=== PATIENT | female | born 1955 | race Caucasian/White ===

== ENCOUNTER → 2017-03-11 | Outpatient (CLI) | payer OTHER | LOC: FIMAGING 10:28 | PROVIDERS: ATTEND Physician Assistant | DX: Z12.31 Encounter for screening mammogram for malignant neoplasm of breast (principal) | CPT/HCPCS: G0202 ==

== ENCOUNTER → 2018-07-21 | Outpatient (CLI) | payer OTHER | LOC: FIMAGING 08:14 | PROVIDERS: ATTEND Physician Assistant | DX: Z12.31 Encounter for screening mammogram for malignant neoplasm of breast (principal) ==

== ENCOUNTER 2018-09-18 04:41 | Emergency (ER) | payer OTHER ==
[2018-09-18] MEDS ORDERED: HYDROmorphONE/DILAUDID 1 MG/ML INJ ONE (04:57)
[2018-09-18] MEDS ORDERED: ONDANSETRON 4 MG/2 ML VIAL ONE (04:57)
[2018-09-18] MEDS ORDERED: HYDROmorphONE/DILAUDID 1 MG/ML INJ IVP ONE (04:59)
[2018-09-18] MEDS ORDERED: ONDANSETRON 4 MG/2 ML VIAL IVP ONE ×2 (04:59→05:38)
[2018-09-18] MEDS ORDERED: NS 1,000 ML IV ONE (04:59)
--- NOTE | 2018-09-18 05:03 | EDPHY ---
H & P Stated Complaint: RLQ abd pain, vomiting x2 hours, last meal 1700 09/17 Time Seen by Provider: 09/18/18 04:53 HPI/ROS: Chief Complaint: Abdominal pain, nausea vomiting HPI: 63-year-old woman with a history of hypertension had a sudden onset of severe right lower quadrant abdominal pain approximately 1 hr prior to presentation. She has not have a history of similar pain in the past. She has vomited. No diarrhea or constipation. No history of abdominal surgeries in the past. No urinary urgency or frequency. It hurts to move around. Pain is a 10/10. There are no alleviating factors. ROS: 10 systems were reviewed and were negative except those elements noted in the HPI. PMH: Hypertension Social History: No smoking, no alcohol, no recreational drug use Family History: non-contributory Physical Exam: Gen: Awake, Alert, No Distress HEENT: Nose: no rhinorrhea Eyes: PERRLA, EOMI Mouth: Moist mucosa Neck: Supple, no JVD Chest: nontender, lungs clear to auscultation Heart: S1, S2 normal, no murmur Abd: Soft, she has focal tenderness in the right lower quadrant with guarding Back: no CVA tenderness, no midline tenderness Ext: no edema, non-tender Skin: no rash Neuro: CN II-XII intact, Sensation grossly intact, Strength 5/5 in bilateral upper and lower extremities - Personal History Current Tetanus Diphtheria and Acellular Pertussis (TDAP): Yes - Medical/Surgical History Hx Asthma: No Hx Chronic Respiratory Disease: No Hx Diabetes: No Hx Cardiac Disease: No Hx Renal Disease: No Hx Cirrhosis: No Hx Alcoholism: No Hx HIV/AIDS: No Hx Splenectomy or Spleen Trauma: No Other PMH: HTN, - Social History Smoking Status: Never smoked Constitutional: Initial Vital Signs Temperature (C) 36.3 C 09/18/18 04:45 Heart Rate 63 09/18/18 04:45 Respiratory Rate 18 09/18/18 04:45 Blood Pressure 170/106 H 09/18/18 04:45 O2 Sat (%) 95 09/18/18 04:45 O2 Delivery Mode Room Air Allergies/Adverse Reactions: penicillin G Allergy (Verified 09/18/18 04:44) Home Medications: Medication Instructions Recorded Albuterol [Proventil Inhaler HFA 1 - 2 puffs IH Q4 PRN #1 mdi 12/26/13 (*)] Estradiol [Estraderm 0.1 MG (RX)] 0.1 mg TD SUWE 12/26/13 Ibuprofen [Advil Liqui-Gels] 200 - 400 mg PO DAILY PRN 12/26/13 Irbesartan 75 mg PO DAILY@18 12/26/13 Progesterone, Micronized 100 mg PO DAILY@18 12/26/13 [Progesterone] levOFLOXACIN [levAQUIN] 750 mg PO DAILY #4 tab 12/26/13 Hydrocodone/Acetaminophen 1 - 2 each PO Q4-6PRN PRN #10 09/18/18 [Hydrocodon-Acetaminophen 5-325] tablet Tamsulosin HCl 0.4 mg PO DAILY #10 cap 09/18/18 Medical Decision Making - Diagnostics Imaging Results: CT scan shows a 3 mm right UVJ stone with mild hydronephrosis. Study interpreted by Dr. Rodas. Imaging: Discussed imaging studies w/ card cutter helper Radiologist ED Course/Re-evaluation: Patient has a 3 mm right UVJ stone. Pain is controlled after Toradol and Dilaudid. Vomiting is improved. Plan will be to discharge on tamsulosin, follow up with primary care physician, collect the stone. - Data Points Laboratory Results: Laboratory Results 09/18/18 05:00 09/18/18 05:00 09/18/18 09/18/18 09/18/18 05:25 05:05 05:00 WBC 9.08 10^3/uL 10^3/uL (3.80-9.50) RBC 4.63 10^6/uL 10^6/uL (4.18-5.33) Hgb 13.6 g/dL g/dL (12.6-16.3) POC Hgb 13.9 gm/dL gm/dL (12.6-16.3) Hct 41.7 % % (38.0-47.0) POC Hct 41 % % (38-47) MCV 90.1 fL fL (81.5-99.8) MCH 29.4 pg pg (27.9-34.1) MCHC 32.6 g/dL g/dL (32.4-36.7) RDW 12.9 % % (11.5-15.2) Plt Count 220 10^3/uL 10^3/uL (150-400) MPV 10.1 fL fL (8.7-11.7) Neut % (Auto) 84.0 % H % (39.3-74.2) Lymph % (Auto) 10.1 % L % (15.0-45.0) Humphreys % (Auto) 4.5 % % (4.5-13.0) Eos % (Auto) 0.8 % % (0.6-7.6) Baso % (Auto) 0.4 % % (0.3-1.7) Nucleat RBC Rel Count 0.0 % % (0.0-0.2) Absolute Neuts (auto) 7.62 10^3/uL H 10^3/uL (1.70-6.50) Absolute Lymphs (auto) 0.92 10^3/uL L 10^3/uL (1.00-3.00) Absolute Monos (auto) 0.41 10^3/uL 10^3/uL (0.30-0.80) Absolute Eos (auto) 0.07 10^3/uL 10^3/uL (0.03-0.40) Absolute Basos (auto) 0.04 10^3/uL 10^3/uL (0.02-0.10) Absolute Nucleated RBC 0.00 10^3/uL 10^3/uL (0-0.01) Immature Gran % 0.2 % % (0.0-1.1) Immature Gran # 0.02 10^3/uL 10^3/uL (0.00-0.10) POC Sodium 146 mEq/L H mEq/L (135-145) Sodium POC Potassium 3.6 mEq/L mEq/L (3.3-5.0) Potassium POC Chloride 108 mEq/L mEq/L (97-110) Chloride Carbon Dioxide Anion Gap POC BUN 22 mg/dL mg/dL (7-23) BUN Creatinine POC Creatinine 0.7 mg/dL mg/dL (0.6-1.0) Estimated GFR Glucose POC Glucose 111 mg/dL H mg/dL (70-100) Calcium Total Bilirubin AST ALT Alkaline Phosphatase Total Protein Albumin Lipase Urine Color YELLOW Urine Appearance HAZY Urine pH 5.0 (5.0-7.5) Ur Specific Mccarley > 1.035 H (1.002-1.030) Urine Protein NEGATIVE (NEGATIVE) Urine Ketones NEGATIVE (NEGATIVE) Urine Blood 1+ H (NEGATIVE) Urine Nitrate NEGATIVE (NEGATIVE) Urine Bilirubin NEGATIVE (NEGATIVE) Urine Urobilinogen NEGATIVE EU EU (0.2-1.0) Ur Leukocyte Esterase NEGATIVE (NEGATIVE) Urine RBC 3-5 /hpf H /hpf (0-3) Urine WBC 1-3 /hpf /hpf (0-3) Ur Epithelial Cells TRACE /lpf /lpf (NONE-1+) Urine Mucus 1+ /lpf /lpf (NONE-1+) Urine Glucose NEGATIVE (NEGATIVE) 09/18/18 05:00 WBC RBC Hgb POC Hgb Hct POC Hct MCV MCH MCHC RDW Plt Count MPV Neut % (Auto) Lymph % (Auto) Humphreys % (Auto) Eos % (Auto) Baso % (Auto) Nucleat RBC Rel Count Absolute Neuts (auto) Absolute Lymphs (auto) Absolute Monos (auto) Absolute Eos (auto) Absolute Basos (auto) Absolute Nucleated RBC Immature Gran % Immature Gran # POC Sodium Sodium 142 mEq/L mEq/L (135-145) POC Potassium Potassium 3.8 mEq/L mEq/L (3.5-5.2) POC Chloride Chloride 110 mEq/L mEq/L (97-110) Carbon Dioxide 24 mEq/l mEq/l (22-31) Anion Gap 8 mEq/L mEq/L (6-14) POC BUN BUN 24 mg/dL H mg/dL (7-23) Creatinine 0.7 mg/dL mg/dL (0.6-1.0) POC Creatinine Estimated GFR > 60 Glucose 113 mg/dL H mg/dL (70-100) POC Glucose Calcium 9.1 mg/dL mg/dL (8.5-10.4) Total Bilirubin 0.5 mg/dL mg/dL (0.1-1.4) AST 20 IU/L IU/L (14-46) ALT 10 IU/L IU/L (9-52) Alkaline Phosphatase 59 IU/L IU/L (38-126) Total Protein 6.9 g/dL g/dL (6.3-8.2) Albumin 4.1 g/dL g/dL (3.5-5.0) Lipase 109 IU/L IU/L (23-300) Urine Color Urine Appearance Urine pH Ur Specific Mccarley Urine Protein Urine Ketones Urine Blood Urine Nitrate Urine Bilirubin Urine Urobilinogen Ur Leukocyte Esterase Urine RBC Urine WBC Ur Epithelial Cells Urine Mucus Urine Glucose Medications Given: Discontinued Medications Hydromorphone HCl (Dilaudid) 0.5 mg IVP EDNOW ONE Stop: 09/18/18 05:00 Last Admin: 09/18/18 05:06 Dose: 0.5 mg Hydromorphone HCl (Dilaudid) 0.5 mg IVP EDNOW ONE Stop: 09/18/18 05:39 Last Admin: 09/18/18 05:41 Dose: 0.5 mg Sodium Chloride (Ns) 1,000 mls @ 0 mls/hr IV ONCE ONE; Wide Open PRN Reason: Protocol Stop: 09/18/18 05:00 Last Admin: 09/18/18 05:06 Dose: 1,000 mls Ketorolac Tromethamine (Toradol) 15 mg IVP EDNOW ONE Stop: 09/18/18 05:39 Last Admin: 09/18/18 05:40 Dose: 15 mg Ondansetron HCl (Zofran) 4 mg IVP EDNOW ONE Stop: 09/18/18 05:00 Last Admin: 09/18/18 05:06 Dose: 4 mg Ondansetron HCl (Zofran) 4 mg IVP EDNOW ONE Stop: 09/18/18 05:39 Last Admin: 09/18/18 05:40 Dose: 4 mg Point of Care Test Results: Chemistry 09/18/18 05:05 POC Sodium 146 mEq/L H mEq/L (135-145) POC Potassium 3.6 mEq/L mEq/L (3.3-5.0) POC Chloride 108 mEq/L mEq/L (97-110) POC BUN 22 mg/dL mg/dL (7-23) POC Creatinine 0.7 mg/dL mg/dL (0.6-1.0) POC Glucose 111 mg/dL H mg/dL (70-100) ISTAT H&H 09/18/18 05:05 POC Hgb 13.9 gm/dL gm/dL (12.6-16.3) POC Hct 41 % % (38-47) Departure - Departure Disposition: Home, Routine, Self-Care Clinical Impression: Kidney stone Condition: Good Instructions: Kidney Stones (ED) Additional Instructions: Take ibuprofen, 600 mg every 8 hr. You may alternate with acetaminophen, 1000 mg every 8 hr. Take tamsulosin daily until you passed stone. Strain your urine and collect the stone and take it to your primary care physician for analysis. Follow up with primary care physician in 3-5 days for further evaluation. Return to the emergency depart for worsening uncontrolled pain, uncontrolled nausea vomiting, fevers, chills, or any other concerns. Referrals: Jeanna Norman PA [Primary Care Provider] - As per Instructions Prescriptions: Hydrocodone/Acetaminophen [Hydrocodon-Acetaminophen 5-325] 1 - 2 each PO Q4- 6PRN PRN #10 tablet PRN Reason: Pain, Severe Tamsulosin HCl 0.4 mg PO DAILY #10 cap
[2018-09-18] MEDS ORDERED: IOPAMIDOL (ISOVUE-300) 100 ML BTL ONE (05:07)
[2018-09-18 05:11] LABS: PLATELET COUNT 220 10^3/uL (150-400)
[2018-09-18] MEDS ORDERED: KETOROLAC 15 MG/1 ML SDV ONE (05:34)
[2018-09-18] MEDS ORDERED: HYDROmorphONE/DILAUDID 2 MG/ML INJ IVP ONE (05:38)
[2018-09-18] MEDS ORDERED: KETOROLAC 15 MG/1 ML SDV IVP ONE (05:38)
[2018-09-18] MEDS ORDERED: TAMSULOSIN HCL 0.4 MG CAP PO ONE (05:51)
[2018-09-18 06:37] VITALS: BP 158/76
== END 2018-09-18 06:37 | disposition home or self-care (01) ==
DX: N20.0 Calculus of kidney (principal)
CPT/HCPCS: 82435-PO; 82565-PO; 82947-PO; 84132-PO; 84295-PO; 84520-PO; 85014-PO; 96374; J1170; J1885; J2405; Q9967

== ENCOUNTER 2018-12-28 16:21 | Inpatient (IN) | payer OTHER ==
[2018-12-28] MEDS ORDERED: NS 1,000 ML IV ONE ×3 (16:50→21:51)
[2018-12-28 17:04] LABS: PLATELET COUNT 199 10^3/uL (150-400)
[2018-12-28 17:09] LABS: INR 1.16 (0.83-1.16); PROTIME(PATIENT) 14.3 SEC (12.0-15.0)
--- NOTE | 2018-12-28 17:13 | EDPHY ---
H & P Time Seen by Provider: 12/28/18 16:44 HPI/ROS: HPI Confused. Diaphoretic. 63-year-old female by private vehicle with her son. The son reports that she came home from work early yesterday. She was complaining of nausea. She vomited x1. She went to bed early. The son reports that she was up out of bed at about 8:30 a.m. This morning. She seemed a little slow to respond to questioning but was taking care of the dogs. She then went back to bed. He then got back home after work and checked on her about 45 min prior to arrival. She was very confused at that time. She was not able to answer questions clearly and she was diaphoretic. I cannot get any further history from the patient. She has no history of alcohol abuse. No history of IV drug street drug use. There is no history of head trauma. She tells me only that she has not been feeling well. ROS: Constitutional: No fever, no chills. As above. Eyes: No discharge. No changes in vision. ENT: No sore throat. No nasal congestion or rhinorrhea. Respiratory: No cough. No shortness of breath. Cardiac: No chest pain, no palpitations. Gastrointestinal: No abdominal pain, no vomiting, no diarrhea. Genitourinary: No hematuria. No dysuria or increased frequency with urination. Musculoskeletal: No back pain. No neck pain. No myalgias or arthralgias. Skin: No rashes. Neurological: No headache. No focal weakness or altered sensation. Past medical history: Hypertension. Social history: She is . She lives with her and her son. Nonsmoker. No alcohol. No history of narcotic pain medication use. Physical Exam: General Appearance: Awake but sleepy. She is not in distress. She is mildly diaphoretic. Patient is clearly confused. She is slow to respond to questioning and has tangential thoughts. This patient appears well-hydrated and well-nourished. Eyes: Pupils equal and round, small at 2-1 mm bilaterally, no pallor or injection. No lid edema, erythema or injection. ENT, Mouth: Mucous membranes are dry. The pharyngeal tissues are unremarkable. No edema or swelling. No asymmetry suggestive of abscess. No erythema or exudates. No tongue lacerations or abrasions. Respiratory: There are no retractions, lungs are clear to auscultation anteriorly with good air movement bilaterally. Cardiovascular: Regular rate and rhythm. Tachycardia. No murmur appreciated. Gastrointestinal: Abdomen is soft and nontender, no masses, bowel sounds normal. No focal tenderness at McBurney's point. No Torres sign. Neurological: Motor sensory function is grossly intact. Cranial nerves are normal. Cerebellar function grossly normal. Skin: Warm and dry, no rashes. Musculoskeletal: Neck is supple and nontender. No pain on flexion of her neck. Extremities are symmetrical. All joints range without pain or impingement. Psychiatric: No agitation. No depression. Database: EKG: EKG time is 4:35 p.m.: EKG shows a narrow complex sinus tachycardia with ventricular rate of 114. ST depressions are noted in the inferior leads 2, 3, AVF there is also subtle ST depression noted in the lateral precordial leads V4 , V5 and V6. Borderline left ventricular hypertrophy. Interpreted by me. EKG time 5:54 p.m.: EKG shows a narrow complex sinus rhythm with ventricular rate of 89. T-wave inversions noted in the inferior leads borderline T-wave abnormalities in the lateral precordial leads. Interpreted by me. Imaging: Chest x-ray AP portable: No infiltrate. No pneumothorax. Cardiac mediastinal silhouette is unremarkable. No acute cardiopulmonary disease process noted. Interpreted by me. CT head without contrast: Dental caries. Otherwise negative study. Results were discussed with staff radiologist Dr. Alec Koenig. Procedures: Procedure: Lumbar puncture. Indication: Altered mental status After verbal informed consent from patient explaining the risks including infection, bleeding, and neurologic damage, a lumbar puncture was performed after the patient was prepped and draped in the usual fashion. The back was anesthetized with 1% lidocaine. Approximately 4 cc of clear fluid was obtained. Opening pressure was not obtained. There were no complications. The procedure was performed by myself. Emergency department course: IV placed. She was placed on a monitoring and evaluation advisor. Triage vital signs reviewed, she is mildly hypertensive she is tachycardic in the 120s. Temperature is 36.5. She was started on IV normal saline with 1-2 L to be given over the next 1-2 hours. Initial point of care testing indicated a hematocrit of 61. 5:35 p.m., the patient was re-evaluated, tachycardia has resolved with IV fluids. Temperature 36.4 degrees. Heart rate currently 83 with a normal sinus rhythm, narrow complex on the monitor. Blood pressure 108/78. Pulse oximetry 90% on room air. She is now responding to questions appropriately. She is much more lucid. She states that she is feeling better. She is answering questions appropriately. She denies any headache or neck pain. Urinalysis indicates white cells in her urine. Culture has been ordered. Blood cultures obtained. Lactate 3.3. Severe sepsis order set initiated. The patient will be given IV Rocephin for presumed urinary tract infection with urosepsis. I feeling as her lactate will significantly clear with IV fluids and her hemoconcentration will improve. Blood cultures and urine cultures are pending. 6:15 p.m., patient re-evaluated, vital signs are normal. Patient is afebrile. She is mentating well. Repeat neurologic Assessment is nonfocal. Discussed results of workup and need for admission. She is receiving IV Rocephin for treatment of urinary tract infection at this time. Hospitalist paged. 6:30 p.m., spoke with Dr. Shirin Lange, on-call hospitalist, case discussed in detail with her. She accepts this patient for admission to the hospitalist service for further evaluation and management. 7:15 p.m., the patient was re-evaluated, she is again altered and confused. Marked difference from previous evaluation at 6:15 p.m.. She is now complaining of a headache as well. Lumbar puncture to be performed. Admitting hospitalist notified. 8:00 p.m., discussed patient's care with admitting hospitalist Dr. Shirin Lange. Waiting on complete results of CSF. Fluid was clear. A few red cells but no white cells. Infection unlikely. Glucose and protein pending. Remaining CSF results to be followed up by hospitalist service. The patient will now be admitted to the step-down unit. The patient's remaining emergency department course under my care has been uneventful. The patient was admitted in stable condition to the hospitalist service. Differential Diagnosis: The differential diagnosis on this patient includes but is not limited to pneumonia, CVA, urinary tract infection, gastroenteritis, dehydration, meningitis, encephalitis, influenza. Subarachnoid hemorrhage, traumatic brain injury unlikely. This represents a partial list of diagnoses considered. These considerations are based on history, physical exam, past history, reassessment and diagnostic testing. Smoking Status: Never smoked Constitutional: Initial Vital Signs Heart Rate 124 H 12/28/18 16:26 Respiratory Rate 18 12/28/18 16:26 Blood Pressure 149/89 H 12/28/18 16:26 O2 Sat (%) 90 L 12/28/18 16:26 O2 Delivery Mode Nasal Cannula O2 (L/minute) 2 Allergies/Adverse Reactions: penicillin G Allergy (Verified 12/28/18 18:52) Unknown Home Medications: Medication Instructions Recorded Herbals/Supplements -Info Only 1 ea PO DAILY 12/28/18 Ibuprofen [Motrin (*)] 200 - 400 mg PO DAILY PRN 12/28/18 Irbesartan [Avapro 150 mg (*)] 150 mg PO DAILY 12/28/18 oxyCODONE/APAP 5/325 [Percocet 1 tab PO Q6HRS PRN 12/28/18 5/325 (*)] Medical Decision Making Critical Care Time: I spent a total of 52 minutes of critical care time in obtaining history, performing a physical exam, bedside monitoring of interventions, collecting and interpreting tests and discussion with consultants but not including time spent performing procedures. - Data Points Laboratory Results: Laboratory Results 12/28/18 16:45 12/28/18 16:45 Microbiology Results: MICROBIOLOGY 12/28/18 17:15 Urine,Clean Catch Urine Culture - Preliminary Medications Given: Chlorhexidine Gluconate (Peridex) 15 ml PO Q12@08,20 [facility] Stop: 06/27/19 07:59 Last Admin: 12/29/18 20:48 Dose: 15 ml Enoxaparin Sodium (Lovenox) 30 mg SC DAILY B[facility] Stop: 06/27/19 08:59 Last Admin: 12/29/18 09:30 Dose: 30 mg Hydrocortisone (Solucortef) 50 mg IVP Q8HRS [facility] Stop: 06/27/19 13:59 Last Admin: 12/30/18 06:30 Dose: 50 mg Sodium Chloride (Ns) 1,000 mls @ 30 mls/hr IV CONT [facility] Stop: 06/26/19 19:44 Last Admin: 12/28/18 22:51 Dose: 1,000 mls Vasopressin 25 unit/ Sodium (Chloride) 251.25 mls @ 24 mls/hr IV CONT B[facility]AR Stop: 06/27/19 07:59 Last Admin: 12/30/18 06:29 Dose: 251.25 mls Famotidine/Sodium Chloride (Pepcid 20 Mg (Premix)) 50 mls @ 200 mls/hr IV DAILY [facility] Stop: 06/27/19 08:59 Last Admin: 12/29/18 09:32 Dose: 50 mls Acyclovir 720 mg/ Dextrose 264.4 mls @ 250 mls/hr IV Q12H [facility] Stop: 01/28/19 19:59 Last Admin: 12/30/18 07:42 Dose: 264.4 mls Ceftriaxone Sodium 2 gm/ (Sodium Chloride) 50 mls @ 100 mls/hr IV Q12H [facility]AR PRN Reason: Protocol Stop: 01/28/19 10:59 Last Admin: 12/29/18 23:50 Dose: 50 mls Sodium Bicarbonate 150 meq/ (Dextrose) 1,150 mls @ 200 mls/hr IV CONT [facility]AR Stop: 06/27/19 11:29 Last Admin: 12/30/18 01:03 Dose: 1,150 mls Epinephrine HCl 2 mg/ Sodium (Chloride) 502 mls @ 0 mls/hr IV CONT BANDAR; Per Protocol PRN Reason: Protocol Stop: 06/27/19 08:29 Last Admin: 12/30/18 05:19 Dose: 502 mls Vancomycin/Sodium Chloride (Vancomycin 1 Gm (Premix)) 250 mls @ 250 mls/hr IV Q24H [facility] Stop: 01/29/19 03:59 Last Admin: 12/30/18 04:29 Dose: 250 mls Oseltamivir Phosphate (Tamiflu Oral Suspension) 30 mg TUBE DAILY [facility] Stop: 01/02/19 09:01 Last Admin: 12/29/18 14:55 Dose: 30 mg Discontinued Medications Etomidate (Etomidate) 20 mg IV ONCE ONE Stop: 12/29/18 05:31 Last Admin: 12/29/18 04:52 Dose: 20 mg Fentanyl (Sublimaze) 25 mcg IVP EDNOW ONE Stop: 12/28/18 19:27 Last Admin: 12/28/18 19:27 Dose: 25 mcg Fentanyl (Sublimaze) 25 mcg IVP EDNOW ONE Stop: 12/28/18 19:44 Last Admin: 12/28/18 19:59 Dose: 25 mcg Fentanyl (Sublimaze) 25 mcg IVP EDNOW ONE Stop: 12/28/18 19:53 Last Admin: 12/28/18 19:55 Dose: 25 mcg Hydrocortisone (Solucortef) 50 mg IVP ONCE ONE Stop: 12/29/18 07:50 Last Admin: 12/29/18 08:50 Dose: 50 mg Sodium Chloride (Ns) 1,000 mls @ 0 mls/hr IV ONCE ONE; Wide Open PRN Reason: Protocol Stop: 12/28/18 16:51 Last Admin: 12/28/18 17:01 Dose: 1,000 mls Sodium Chloride (Ns) 1,000 mls @ 0 mls/hr IV EDNOW ONE; Wide Open PRN Reason: Protocol Stop: 12/28/18 17:00 Last Admin: 12/28/18 17:03 Dose: 1,000 mls Ceftriaxone Sodium/Dextrose (Rocephin 1 Gm (Premix)) 50 mls @ 100 mls/hr IV EDNOW ONE PRN Reason: Protocol Stop: 12/28/18 18:07 Last Admin: 12/28/18 18:09 Dose: 50 mls Lactated Ringer's (Lr) 1,800 mls @ 3,600 mls/hr 30 ml/kg infuse over 30 min ( 1800 ml) IV EDNOW ONE PRN Reason: Protocol Stop: 12/28/18 18:07 Last Admin: 12/28/18 18:07 Dose: 1,800 mls Acyclovir 720 mg/ Dextrose 264.4 mls @ 250 mls/hr IV Q8HRS [facility] Stop: 01/27/19 21:59 Last Admin: 12/29/18 07:23 Dose: 264.4 mls Sodium Chloride (Ns) 1,000 mls @ 3,000 mls/hr IV ONCE ONE Stop: 12/28/18 22:10 Last Admin: 12/28/18 21:20 Dose: 1,000 mls Sodium Chloride (Ns) 1,000 mls @ 0 mls/hr IV ONCE ONE PRN Reason: Wide Open Stop: 12/29/18 03:17 Last Admin: 12/29/18 05:30 Dose: 1,000 mls Piperacillin/Tazobactam/Dextrose (Zosyn 3.375 Gm (Premix)) 50 mls @ 100 mls/hr IV Q6H [facility] PRN Reason: Protocol Stop: 01/28/19 03:29 Last Admin: 12/29/18 09:30 Dose: 50 mls Norepinephrine 4 mg/ Sodium (Chloride) 504 mls @ 0 mls/hr IV CONT BANDAR; Per Protocol PRN Reason: Protocol Stop: 06/27/19 03:29 Last Admin: 12/29/18 18:54 Dose: 504 mls Vancomycin/Sodium Chloride (Vancomycin 1 Gm (Premix)) 250 mls @ 250 mls/hr IV Q24H [facility] Stop: 01/28/19 03:59 Last Admin: 12/29/18 04:38 Dose: 250 mls Epinephrine HCl 1 mg/ Sodium (Chloride) 251 mls @ 0 mls/hr IV CONT BANDAR; Per Protocol PRN Reason: Protocol Stop: 06/27/19 08:29 Last Admin: 12/29/18 17:22 Dose: 251 mls Sodium Chloride (Ns) 500 mls @ 0 mls/hr IV ONCE ONE PRN Reason: As Directed Stop: 12/29/18 13:01 Last Admin: 12/29/18 11:00 Dose: 500 mls Norepinephrine 8 mg/ Sodium (Chloride) 1,008 mls @ 0 mls/hr IV CONT BANDAR; Per Protocol PRN Reason: Protocol Stop: 06/27/19 03:29 Last Admin: 12/30/18 06:29 Dose: 1,008 mls Potassium Chloride (Potassium Cl 20 Meq (Premix)) 50 mls @ 50 mls/hr IV Q1H [facility] Stop: 12/30/18 07:35 Last Admin: 12/30/18 05:32 Dose: 50 mls Oseltamivir Phosphate (Tamiflu Oral Suspension) 30 mg PO DAILY@0800 [facility] Stop: 01/02/19 08:01 Last Admin: 12/30/18 02:47 Dose: Not Given Rocuronium [place] (Zemuron) 80 mg IV ONCE ONE Stop: 12/29/18 05:31 Last Admin: 12/29/18 04:53 Dose: 80 mg Sodium Bicarbonate (Sodium Bicarbonate) 50 meq IV ONCE ONE Stop: 12/29/18 10:01 Last Admin: 12/29/18 10:00 Dose: 50 meq Point of Care Test Results: Chemistry 12/28/18 12/28/18 16:48 16:46 POC Sodium 142 mEq/L mEq/L (135-145) POC Potassium 3.9 mEq/L mEq/L (3.3-5.0) POC Chloride 108 mEq/L mEq/L (97-110) POC Total CO2 16 mEq/L L mEq/L (22-31) POC BUN 39 mg/dL H mg/dL (7-23) POC Creatinine 2.2 mg/dL H mg/dL (0.6-1.0) POC Glucose 172 mg/dL H mg/dL (70-100) POC Troponin I 0.00 ng/mL ng/mL (0.00-0.08) ISTAT H&H 12/28/18 16:48 POC Hgb 20.7 gm/dL H* gm/dL (12.6-16.3) POC Hct 61 % H* % (38-47) Departure - Departure Disposition: [facility] Acute Clinical Impression: Altered mental status, Urinary tract infection, Polycythemia, Dehydration, Renal insufficiency, Influenza with encephalopathy
[2018-12-28] MEDS ORDERED: LR IV ONE (17:38)
[2018-12-28] MEDS ORDERED: fentaNYL 100 MCG/2 ML INJ ONE (19:09)
[2018-12-28 19:11] LABS: PLATELET COUNT 149 10^3/uL (150-400)
[2018-12-28] MEDS ORDERED: fentaNYL 100 MCG/2 ML INJ IVP ONE ×3 (19:26→19:52)
[2018-12-28] MEDS ORDERED: PROMETHAZINE HCL 25 MG/ML INJ IVP PRN (19:33)
[2018-12-28] MEDS ORDERED: ONDANSETRON 4 MG/2 ML VIAL IVP PRN (19:33)
[2018-12-28] MEDS ORDERED: HYDROmorphONE/DILAUDID 1 MG/ML INJ IVP PRN (19:33)
[2018-12-28] MEDS ORDERED: LORazepam 2 MG/ML INJ IVP PRN (19:33)
[2018-12-28] MEDS ORDERED: ACETAMINOPHEN 325 MG TAB PO PRN (19:33)
[2018-12-28] MEDS ORDERED: ONDANSETRON DISINTEGRATING 4 MG TAB PO PRN (19:33)
[2018-12-28] MEDS ORDERED: KETAMINE 200 MG/20 ML VIAL ONE (19:44)
[2018-12-28] MEDS ORDERED: NS 1,000 ML IV SCH (19:45)
--- NOTE | 2018-12-28 21:15 | PDGENHP ---
History and Physical - Chief Complaint confusion - History of Present Illness 63 yo F with minimal PMH other than HTN and recent diagnosis of kidney stone presenting from home with her son with acute confusion. Patient resides with her son who the majority of this history is obtained by as patient is unable to answer questions appropriately due to her encephalopathy. 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 This morning early before he left for work he noticed that she seemed a bit confused or slow and not her normal self. He went to work but when he got home this evening she was much more confused, she was still in bed which is very unusual for her and she had garbled speech, was diaphoretic and having a hard time walking without holding onto things. He brought her to the ER at that time, and she remains in very similar situation currently. He notes she has never had such a change in her mental status before. He notes that she was given pain medications for her kidney stone but has not been requiring them and he doubts she took them by accident. Patient herself is able to say that she hurts, but has a hard time saying where, did state that her neck hurt at one time. She otherwise really cannot answer questions intelligibly, and although she is awake and alert she is tangential and her answers are garbled and nonsensical. History Information - Allergies/Home Medication List Allergies/Adverse Reactions: penicillin G Allergy (Verified 12/28/18 18:52) Unknown Home Medications: Herbals/Supplements -Info Only 1 ea PO DAILY 12/28/18 [Last Taken Unknown] Ibuprofen [Motrin (*)] 200 - 400 mg PO DAILY PRN 12/28/18 [Last Taken Unknown] Irbesartan [Avapro 150 mg (*)] 150 mg PO DAILY 12/28/18 [Last Taken Unknown] oxyCODONE/APAP 5/325 [Percocet 5/325 (*)] 1 tab PO Q6HRS PRN 12/28/18 [Last Taken Unknown] I have personally reviewed and updated: family history, medical history, social history, surgical history - Past Medical History hypertension Additional medical history: recent diagnosis of kidney stone - Surgical History Additional surgical history: shoulder surgery - Family History Positive for: non-pertinent - Social History Smoking Status: Never smoked Alcohol Use: Sober Drug Use: None Additional social history: lives with her son and -- has alcoholic cirrhosis but has quit drinking as has the patient, 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 Review of Systems Review of Systems: unobtainable 2/2 mental status Physical Exam Physical Exam: Temp Pulse Resp BP Pulse Ox 36.5 C 109 H 14 91/68 L 92 12/28/18 17:40 12/28/18 20:04 12/28/18 20:04 12/28/18 20:04 12/28/18 20:04 O2 (L/minute) 3 Constitutional: chronically ill appearing, uncomfortable Eyes: PERRL, anicteric sclera Ears, Nose, Mouth, Throat: poor dentition, dry mucous membranes Cardiovascular: no murmur, rub, or gallop, tachycardia, No edema Respiratory: no respiratory distress, no rales or rhonchi Gastrointestinal: normoactive bowel sounds, soft, non-tender abdomen Genitourinary: no bladder tenderness Skin: warm, normal color Musculoskeletal: generalized weakness Neurologic: weakness (BUE weak but limited by ability to cooperate), CN II-XII Intact, No AAOx3 Psychiatric: encephalopathic, other (rambling incoherently) Lab Data & Imaging Review 12/28/18 18:53 12/28/18 16:45 WBC 14.04 10^3/uL (3.80-9.50) H 12/28/18 18:53 RBC 5.93 10^6/uL (4.18-5.33) H 12/28/18 18:53 Hgb 17.1 g/dL (12.6-16.3) H 12/28/18 18:53 POC Hgb 20.7 gm/dL (12.6-16.3) H* 12/28/18 16:48 Hct 51.2 % (38.0-47.0) H 12/28/18 18:53 POC Hct 61 % (38-47) H* 12/28/18 16:48 MCV 86.3 fL (81.5-99.8) 12/28/18 18:53 MCH 28.8 pg (27.9-34.1) 12/28/18 18:53 MCHC 33.4 g/dL (32.4-36.7) 12/28/18 18:53 RDW 13.8 % (11.5-15.2) 12/28/18 18:53 Plt Count 149 10^3/uL (150-400) L 12/28/18 18:53 MPV 11.2 fL (8.7-11.7) 12/28/18 18:53 Neut % (Auto) 85.9 % (39.3-74.2) H 12/28/18 18:53 Lymph % (Auto) 4.1 % (15.0-45.0) L 12/28/18 18:53 [place] % (Auto) 8.8 % (4.5-13.0) 12/28/18 18:53 Eos % (Auto) 0.1 % (0.6-7.6) L 12/28/18 18:53 Baso % (Auto) 0.3 % (0.3-1.7) 12/28/18 18:53 Nucleat RBC Rel Count 0.0 % (0.0-0.2) 12/28/18 18:53 Absolute Neuts (auto) 12.06 10^3/uL (1.70-6.50) H 12/28/18 18:53 Absolute Lymphs (auto) 0.58 10^3/uL (1.00-3.00) L 12/28/18 18:53 Absolute Monos (auto) 1.24 10^3/uL (0.30-0.80) H 12/28/18 18:53 Absolute Eos (auto) 0.01 10^3/uL (0.03-0.40) L 12/28/18 18:53 Absolute Basos (auto) 0.04 10^3/uL (0.02-0.10) 12/28/18 18:53 Absolute Nucleated RBC 0.00 10^3/uL (0-0.01) 12/28/18 18:53 Immature Gran % 0.8 % (0.0-1.1) 12/28/18 18:53 Immature Gran # 0.11 10^3/uL (0.00-0.10) H 12/28/18 18:53 RBC/WBC/PLT Morphology TNP 12/28/18 18:53 Platelet Estimate TNP 12/28/18 18:53 PT 14.3 SEC (12.0-15.0) 12/28/18 16:45 INR 1.16 (0.83-1.16) 12/28/18 16:45 APTT 26.3 SEC (23.0-38.0) 12/28/18 16:45 VBG Lactic Acid 3.4 mmol/L (0.7-2.1) H 12/28/18 18:41 POC Sodium 142 mEq/L (135-145) 12/28/18 16:48 Sodium 135 mEq/L (135-145) 12/28/18 16:45 POC Potassium 3.9 mEq/L (3.3-5.0) 12/28/18 16:48 Potassium 4.5 mEq/L (3.5-5.2) 12/28/18 16:45 POC Chloride 108 mEq/L (97-110) 12/28/18 16:48 Chloride 107 mEq/L (97-110) 12/28/18 16:45 Carbon Dioxide 14 mEq/l (22-31) L 12/28/18 16:45 POC Total CO2 16 mEq/L (22-31) L 12/28/18 16:48 Anion Gap 14 mEq/L (6-14) 12/28/18 16:45 POC BUN 39 mg/dL (7-23) H 12/28/18 16:48 BUN 36 mg/dL (7-23) H 12/28/18 16:45 Creatinine 2.1 mg/dL (0.6-1.0) H 12/28/18 16:45 POC Creatinine 2.2 mg/dL (0.6-1.0) H 12/28/18 16:48 Estimated GFR 24 12/28/18 16:45 Glucose 161 mg/dL (70-100) H 12/28/18 16:45 POC Glucose 172 mg/dL (70-100) H 12/28/18 16:48 Calcium 8.6 mg/dL (8.5-10.4) 12/28/18 16:45 Total Bilirubin 0.7 mg/dL (0.1-1.4) 12/28/18 16:45 Conjugated Bilirubin 0.6 mg/dL (0.0-0.5) H 12/28/18 16:45 Unconjugated Bilirubin 0.1 mg/dL (0.0-1.1) 12/28/18 16:45 AST 34 IU/L (14-46) 12/28/18 16:45 ALT 19 IU/L (9-52) 12/28/18 16:45 Alkaline Phosphatase 38 IU/L (38-126) 12/28/18 16:45 Ammonia < 9.0 uMOL/L (9.0-30.0) L 12/28/18 17:00 POC Troponin I 0.00 ng/mL (0.00-0.08) 12/28/18 16:46 Total Protein 6.7 g/dL (6.3-8.2) 12/28/18 16:45 Albumin 3.8 g/dL (3.5-5.0) 12/28/18 16:45 Lipase 79 IU/L (23-300) 12/28/18 16:45 TSH 5.330 uIU/mL (0.465-4.680) H 12/28/18 16:45 Free T4 1.02 ng/dL (0.59-2.19) 12/28/18 16:45 Free T3 1.89 pg/mL (2.77-5.27) L 12/28/18 16:45 Specimen Hemolysis 122 12/28/18 16:45 Urine Color HONEY 12/28/18 17:15 Urine Appearance MODERATELY TURBID 12/28/18 17:15 Urine pH 5.0 (5.0-7.5) 12/28/18 17:15 Ur Specific Iaeger 1.019 (1.002-1.030) 12/28/18 17:15 Urine Protein 1+ (NEGATIVE) H 12/28/18 17:15 Urine Ketones NEGATIVE (NEGATIVE) 12/28/18 17:15 Urine Blood 1+ (NEGATIVE) H 12/28/18 17:15 Urine Nitrate NEGATIVE (NEGATIVE) 12/28/18 17:15 Urine Bilirubin NEGATIVE (NEGATIVE) 12/28/18 17:15 Urine Urobilinogen 2.0 EU (0.2-1.0) H 12/28/18 17:15 Ur Leukocyte Esterase NEGATIVE (NEGATIVE) 12/28/18 17:15 Urine RBC 3-5 /hpf (0-3) H 12/28/18 17:15 Urine WBC 50-182 /hpf (0-3) H 12/28/18 17:15 Ur Epithelial Cells TRACE /lpf (NONE-1+) 12/28/18 17:15 Hyaline Casts 15-25 /lpf (0-1) H 12/28/18 17:15 Urine Mucus TRACE /lpf (NONE-1+) 12/28/18 17:15 Ur Culture Indicated? INDICATED (NI) H 12/28/18 17:15 Urine Glucose 1+ (NEGATIVE) H 12/28/18 17:15 CSF Tube Number 4 12/28/18 19:55 CSF Appearance CLEAR (CLEAR) 12/28/18 19:55 CSF Color COLORLESS (COLORLESS) 12/28/18 19:55 CSF Supernatant SL. XANTHO (COLORLESS) H 12/28/18 19:55 CSF WBC 3 /mm3 (0-5) 12/28/18 19:55 CSF RBC 13 /mm3 (0-0) H 12/28/18 19:55 Nasal Influenza A PCR FLU A DETECTED (NEGATIVE) H 12/28/18 20:05 Nasal Influenza B PCR NEGATIVE FOR FLU B (NEGATIVE) 12/28/18 20:05 Urine Opiates Screen NEGATIVE (NEGATIVE) 12/28/18 17:15 Urine Barbiturates NEGATIVE (NEGATIVE) 12/28/18 17:15 Ur Phencyclidine Scrn NEGATIVE (NEGATIVE) 12/28/18 17:15 Ur Amphetamine Screen NEGATIVE (NEGATIVE) 12/28/18 17:15 U Benzodiazepines Scrn NEGATIVE (NEGATIVE) 12/28/18 17:15 Urine Cocaine Screen NEGATIVE (NEGATIVE) 12/28/18 17:15 U Marijuana (THC) Screen NEGATIVE (NEGATIVE) 12/28/18 17:15 Ethyl Alcohol < 10 mg/dL (0-10) 12/28/18 16:45 Visualized and Interpreted Chest x-ray results: Yes Chest X-Ray results: no infiltrate Visualized and Interpreted imaging results: Yes Interpretation: head CT: nothing acute Visualized and Interpreted EKG results: Yes EKG Interpretation: Positive for: normal sinsus rhythm, ST depression, T waves inversion Assessment & Plan Assessment: Altered mental status (Acute) Urinary tract infection (Acute) Polycythemia (Acute) Dehydration (Acute) Renal insufficiency (Acute) 63 yo F with PMH of HTN presenting with acute encephalopathy, PEPITO, polycythemia found to have influenza A and concern for viral encephalitis # toxic metabolic encephalopathy: unclear etiology, differential including infectious process versus CVA versus medication related most likely given acuity of presentation. Head CT negative, LP performed and fluid clear with only small number RBC appreciated so far. Brain MRI w/wo pending, will ask neurology to evaluate in am. Utox negative. Does have flu A on swab and on discussion with ID, this could represent influenza encephalitis as well. # severe sepsis: with elevated wbc, low temp, tachycardia and source of infections noted to be influenza and ? encephalitis and UTI. HD stable, lactate beginning to trend down, monitoring in ICU # ? viral meningitis/encephalitis: as above, starting acyclovir pending HSV PCR , tamiflu and brain MRI pending # influenza A infection: as above, starting tamiflu # pyuria: unknown if symptomatic due to mental status, given ctx and cultures pending, will continue ctx for now # PEPITO: in the setting of illness as above and like poor PO intake, IVF overnight and trending, will bladder scan, does have a recent kidney stone diagnosis and if not improved in am will need eval for hydro # polycythemia: presumably related to volume depletion and some improvement s/p IVF, was not present in the recent past, trending, ABG pending # lactic acidosis: in setting of above, remains slightly elevated despite IVF and will continue fluids for now # hyperglycemia: likely stress response # IP status, critically ill requiring ICU level care, > 45 min critical care time spent in addition to usual admission time for evaluation of labs/imaging and coordination of care with other MDs, care plan reviewed with ER doctor including plan for LP, hx obtained from patients son present at bedside.
[2018-12-28 22:37] LABS: CREATINE KINASE 77 IU/L (0-156)
[2018-12-28] MEDS: ACYCLOVIR IV SCH (22:51)
[2018-12-28] MEDS: D5W IV SCH (22:51)
[2018-12-29] MEDS ORDERED: NS 1,000 ML IV ONE (03:16)
--- NOTE | 2018-12-29 03:32 | HOSPPROG ---
Hospitalist Progress Note Assessment/Plan: XC: Notified at 3 AM of new hypotension. I evaluated patient shortly after and BP 50s/30s, HR 120s. Her O2 sats remain normal on 3 L/min O2 but she is minimally responsive. She does open eyes to voice but little else. Review of records notable for suspected UTI, flu A+, and albuminocytologic dissociation on LP but no clear evidence of infection in CSF. I have ordered CXR, ABG, fluid bolus, and will broaden antibiotics to Vancomycin and Zosyn. She has been on acyclovir and CTX so far. I will also have norepinephrine started peripherally and ask the extruder operator horizontal surgeon to place a central line. If mental status does not improve with better BP she may require intubation to protect her airway as well. I personally spent 30 minutes critical care time evaluating patient and coordinating care. Objective: Vital Signs Temp Pulse Resp BP Pulse Ox 36.5 C 119 H 26 H 85/72 L 90 L 12/28/18 17:40 12/29/18 01:00 12/29/18 01:00 12/29/18 03:19 12/29/18 01:00 Microbiology 12/28/18 19:35 Gram Stain - Final Cerebral Spinal Fluid Laboratory Results 12/28/18 18:53 12/27/18 12/28/18 12/29/18 05:59 05:59 05:59 Intake Total 3050 Output Total 10 Balance 3040 PT 14.3 SEC (12.0-15.0) 12/28/18 16:45 INR 1.16 (0.83-1.16) 12/28/18 16:45 ICD10 Worksheet Patient Problems: Problems Problem Status Onset Shortness of breath Acute Altered mental status Acute Urinary tract infection Acute Polycythemia Acute Dehydration Acute Renal insufficiency Acute
[2018-12-29] MEDS ORDERED: VANCOMYCIN HCL/NORMAL SALINE 250 ML IV SCH (04:00)
[2018-12-29] MEDS: PIPERACILLIN/TAZO 3.375 GM/DEX 50 ML IV SCH ×2 (04:05→09:30)
--- NOTE | 2018-12-29 04:40 | GOP ---
[f rep st] OPERATIVE REPORT DATE OF OPERATION: SURGEON: Ignacio Dasilva MD PREOPERATIVE DIAGNOSIS: Sepsis. POSTOPERATIVE DIAGNOSIS: Sepsis. PROCEDURE PERFORMED: Right femoral central line placement. FINDINGS: INDICATIONS: The patient is hypotensive. Physician has requested assistance with central line place ment. DESCRIPTION OF PROCEDURE: Gown, gloves, sterile procedure. Time-out was done. Right groin scrubbed with ChloraPrep, draped in the usual sterile fashion. Using the ultrasound probe, the femoral vein was identified. An 18-gauge thin-wall needle was used to cannulate the vein. The guidewire inserted . The dilator was placed over this and eventually a triple-lumen catheter slid over the wire. All p orts were aspirated free of blood, flushed with heparinized saline and capped. The catheter was sewn in with silk and a sterile Tegaderm dressing placed. /[id number]/MODL
[2018-12-29] MEDS ORDERED: fentaNYL/NACL 100 ML IV SCH (05:00)
[2018-12-29] MEDS ORDERED: ETOMIDATE 40 MG/20 ML INJ ONE (05:00)
[2018-12-29] MEDS ORDERED: PROPOFOL/EMULSION 100 ML IV SCH (05:00)
[2018-12-29] MEDS ORDERED: ROCURONIUM 100 MG/10 ML VIAL ONE (05:00)
[2018-12-29 05:13] LABS: PLATELET COUNT 159 10^3/uL (150-400)
[2018-12-29] MEDS ORDERED: ROCURONIUM 100 MG/10 ML VIAL IV ONE (05:30)
[2018-12-29] MEDS ORDERED: ETOMIDATE 20 MG/10 ML VIAL IV ONE (05:30)
--- NOTE | 2018-12-29 05:41 | PDCONSULT ---
Partition Setter Note: I was requested to consult the patient in ICU for oral tracheal intubation by Dr. Dewitt. Patient is 63-year-old woman admitted for influenza whose had worsening respiratory status mental status. On arrival found the patient the bed in the intensive care unit. Patient was minimally responsive. Tachypneic and not protecting her airway. She coarse lung sounds bilaterally. ED procedure: RSI intubation Indication for the procedure was respiratory failure. The patient was preoxygenated with 100% oxygen by face mask. The patient was sedated with etomidate, 20 mg and paralyzed with rocuronium 80 mg. The patient was orally endotracheally intubated video laryngoscopy with a 7.5 ETT. Tracheal intubation was confirmed with misting on the tube; breath sounds were auscultated equally bilaterally; appropriate color change with [place] [employer] CO2 detector, capnography waveform is appropriate, oxygen saturation after procedure is 94%. Chest X-ray shows ETT in good position. The procedure was performed by myself.
--- NOTE | 2018-12-29 05:57 | PDMN ---
Medical Necessity Medical necessity: Pt meets inpt criteria per MD order and MCG M-160, Sepsis and Other Febrile Illness, without Focal Infection, A-3 days. 63 y/o admitted w/ severe sepsis as evidenced by elev WBC's, elev lactate, low temp, tachycardia, + for influenza A, severe AMS, acute dehydration, and acute renal insufficiency , hemodynamically unstable during nt w/BP of 50's/30's and persistent tachycardia and obtunded requiring central line placement and IV norepinephrine and subsequent intubation. Anticipate>2MN, critically ill pt requiring ICU care, ongoing eval/management of above.
[2018-12-29] MEDS: ACYCLOVIR IV SCH ×2 (07:23→20:48)
[2018-12-29] MEDS: D5W IV SCH ×2 (07:23→20:48)
[2018-12-29] MEDS ORDERED: HYDROCORTISONE 100 MG/2 ML VIAL IVP ONE (07:49)
[2018-12-29] MEDS ORDERED: OSELTAMIVIR 6 MG/ML UDSYR PO SCH (08:00)
[2018-12-29] MEDS ORDERED: FAMOTIDINE 20 MG/NACL 50 ML IV SCH (09:00)
[2018-12-29] MEDS ORDERED: ENOXAPARIN 30 MG/0.3 ML SYR SC SCH (09:00)
[2018-12-29] MEDS: EPINEPHrine 1 MG in NS 250 ML IV SCH ×2 (09:30→17:22)
[2018-12-29] MEDS: CHLORHEXIDINE GLUCONATE 15 ML UDL PO SCH ×2 (09:30→20:48)
[2018-12-29] MEDS: FAMOTIDINE 20 MG/NACL 50 ML IV SCH (09:32)
[2018-12-29] MEDS ORDERED: NA BICARBONATE 50 MEQ/50 ML VIAL ONE (09:43)
[2018-12-29] MEDS: VASOPRESSIN 25 UNIT in NS 250 ML IV SCH ×2 (10:00→18:54)
[2018-12-29] MEDS ORDERED: NA BICARBONATE 50 MEQ/50 ML VIAL IV ONE (10:00)
--- NOTE | 2018-12-29 10:44 | ECHO ---
[email or web address] [address] [address] Main: [phone] Echocardiography Examination Transthoracic Name: MALU FAGAN MR#: [id number] Study Date: 12/29/2018 Study Time: 08:38 AM Date of : 1955 Age: 63 year(s) Height: 172.7 cm (68 in.) Weight: 72.12 kg (159 lb.) BSA: 1.85 m2 Gender: Female Examination: Echo Contrast: Image Quality: Adequate Rhythm: Heart Rate: BP: 110 mmHg/60 mmHg Indication: Hypotension Procedure Staff Referring Physician: Manager Call: Shanti Jimenez TRICIA Reading Physician: Shankar Jaramillo MD Requesting Provider: Indication: Hypotension Measurements Chambers AV/MV Label Value Normal Value Label Value Normal Value LVDd, 2D 3.9 cm (3.9cm - 5.3cm) AV PGmean 1 mmHg LADs, 2D 1.8 cm (2.7cm - 3.8cm) AV Vmax 0.68 m/s Additional Vessels MV E Vmax 0.24 m/s Label Value Normal Value MV A Vmax 0.38 m/s AoRoot, MM 3 cm (2.2cm - 3.7cm) MV E/A 0.63 MV E/E' lateral 6 MV E/E' septal 5.8 (0.45 - 1.25) MV E' septal 0.04 m/s MV E' lateral 0.04 m/s MV E/E' mean 6 MV E' mean 0.04 m/s Conclusions Mitral Valve: No mitral regurgitation. Aortic Valve: Aortic leaflets exhibit normal cuspal separation. Patient: MALU FAGAN Study Date: 12/29/2018 Page 1 of 2 08:38 AM Tricuspid Valve: Trivial tricuspid regurgitation. Pulmonary artery pressure normal. Overall Conclusions: Difficult to assess LV function given limited views/irregular HR however LV function appears low normal range Findings Left Ventricle: The left ventricle cavity is small. Left ventricle wall thickness is normal. This study is inadequate for the evaluation of regional wall motion. IVS: The septum is intact. Right Ventricle: Normal size right ventricle. Right ventricular wall thickness is normal. Left Atrium: The left atrium is normal in size. IAS: Normal appearing atrial septum. Right Atrium: The right atrium is normal in size. Mitral Valve: Normal . No mitral regurgitation. No mitral valve stenosis. Aortic Valve: Aortic leaflets exhibit normal cuspal separation. No aortic valve regurgitation. There is no aortic stenosis. The aortic valve is trileaflet. Tricuspid Valve: Tricuspid valve leaflets are normal in appearance and function. Trivial tricuspid regurgitation. No tricuspid valve stenosis. Pulmonary artery pressure normal. Pulmonic Valve: Pulmonic valve not well visualized. Aorta: The aorta is normal. The aortic root size in M-mode measures 3.0 cm. Aorta Measurements AoRoot, MM is 3.0 cm. Pulmonary Artery: The pulmonary artery morphology appears normal. Pericardium: Slight RA collapse.. Trivial anterior pericardial effusion. No pleural effusion present. Exam Details Procedure Ordered: Echo Procedure Status: Routine study Image Quality: Adequate Facility Location: Cardiac Echo 1 (No Signature Object) Patient: MALU FAGAN Study Date: 12/29/2018 Page 2 of 2 08:38 AM [id number]
--- NOTE | 2018-12-29 10:56 | GCON ---
[f rep st] CONSULTATION NEUROLOGIC CONSULTATION REFERRING PHYSICIAN: Shirin Lange MD The patient is a 63-year-old woman who I am asked to see in neurologic consultation regarding altered mental state. The story is obtained from reviewing the medical records and discussion with the shahnaz ro. She has not had a significant history of any neurologic problems in the past. Issues began yest erday after she has been dealing with recent kidney stone and was having some confusion. She lives w ith her son. She was not able to provide any detailed history yesterday. The day before yesterday, she was noted to be normal and she had been working. She was not feeling well later that day with na usea and vomiting 2 nights ago. Yesterday morning, she was a little bit confused according to her so n and slower in her actions. She was more confused by the evening and was having trouble with speech , and seemed diaphoretic and was unsteady. Other than receiving some pain medication for kidney ston es, which we are not sure how much she is actually taking, nothing else unusual has happened. There have not been other details really available. Dr. Lange documented the patient at some point rohan d that her neck hurt. She really was not answering questions during that time she was able to obtain the history. PAST MEDICAL HISTORY: Notable for the kidney stone, hypertension. FAMILY HISTORY: Noncontributory. SOCIAL HISTORY: No smoking. No alcohol. The patient has some alcohol consumption in the past, but not recently. When she was examined yesterday by Dr. Lange, she was noted to have limited cooperation and had s ome weakness in the arms. She was not oriented. She was not able to communicate very effectively, j ust rambling incoherently. She had a head CT that was generally unremarkable. She was found to have influenza A. In her CSF analysis, she was noted to have no significant white cells or red cells, gl ucose of 96, protein greater than 600. She has a prominent metabolic acidosis on blood gas with a pH as low as 7.19 early this morning. She is now intubated. White count of 17,000. Hematocrit 65%. Urine shows elevated white cells. Cultures are pending on urine. The tox screen was negative. Irish use of worsening sepsis syndrome, she required addition of pressors and intubation to protect the air way. She is now on broad-spectrum antibiotics to cover bacterial and possible viral encephalitis. S he is not currently sedated, and the nurse says that her responsiveness has mostly been in the form o f mild reaction to suctioning, but no purposeful movements and not following commands. Currently she is on acyclovir, Lovenox, epinephrine infusion as needed, norepinephrine infusion as ne eded, propofol as needed but not currently being infused. Vancomycin. ALLERGIES: Penicillin G is her known allergy listed. PHYSICAL EXAM: VITAL SIGNS: When she came to the hospital, she was noted to have a temperature of 3 6.5 by oral testing, blood pressure 128/75, and a pulse of 85. Over the next several hours after 170 0, she has had decreasing blood pressure at times, and the lowest documented pressure thus far has be en 85/72 at 3:00 this morning. Then, at 0800, 59/24 was documented, but 5 minutes later, 101/47. Pu lse rates have been in the low 100s. Respiratory rate around 27. Oxygen saturation is low, most rec ently 87%. Temperature 37.5. GENERAL: She is lying in the bed, intubated, in no acute distress, bu t not purposefully interacting. NECK: Supple with no bruits or masses. CARDIAC: No murmur, but ta chycardia. No rash. NEUROLOGIC EXAM: There is partial eye opening with no purposeful movements. She does not respond to voice with any purposeful reaction, and does not open her eyes to command or follow any other comman ds. With painful stimuli in the extremities, there is no withdrawal. There is minimal response to b row pressure. Pupils are 5 mm and reactive. Oculocephalic reflexes are partially intact. She does not track with her eyes. There is no facial asymmetry. There is a diminished gag reflex. Partial r esponse to deep suctioning, and the nurse says with a slight bucking of the body. The corneal reflex es are brisk bilaterally. Reflexes are absent. No Babinski sign. The head CT was reviewed. There is no evidence of stroke or hemorrhage. Some periodontal disease is noted. IMPRESSION: Total unit time of 75 minutes. The patient is acutely ill with a sepsis syndrome, and d efinitive source is not established to account for all of this, but leading concerns are influenza A infection documented so far, or urosepsis, or unrecognized viral bacterial syndrome. The patient has had some periods of relative hypotension which can lead to significant decreased cerebral perfusion pressure and subsequent ischemic encephalopathy, but it is unclear if that is present. There is no c linical evidence of seizures. There is not any documented focal feature to suggest a focal infarctio n, but we cannot rule out infarction at this stage. Whether there is truly central nervous system me ningoencephalitis cannot be definitively determined yet either, although the CSF profile was not very suspicious other than a markedly elevated protein level. The incidence of influenza A encephalitis is rare and can be difficult to definitively diagnose. She is currently on appropriate therapy and s trategies so far. I have put in a request for the lab to let us know how we can order influenza A PC R for RNA, and then it would be helpful to check CSF IgG and IgA antibodies simultaneous to serum on more than 1 occasion, as there is mention of a potential index referred to as the Reiber index. With this analysis, if the CSF antibody production is greater than or equal to 1.5 that of the serum, it is an indicator of potential intrathecal synthesis of antibodies, which would support the diagnosis o f an influenza A encephalitis. MRI and CSF help determine the prognosis in this condition. MRI will be obtained when possible. For now, we will continue supportive care and monitoring. I will also check EEG, but do not currently s uspect unrecognized seizure. /[id number]/MODL
--- NOTE | 2018-12-29 11:02 | ASMTCMCOM ---
CM Note CM Note Notes: Pt is a 63 yo F presents with AMS, UTI, dehydration, renal insufficiency and influeza A. Pt has history of HTN. 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 Pt has history of alcohol use, no concerns noted at this time. Pt care discussed in rounds and CM met with pt's son, Vamsi to provide support/ answer questions. Pt is currently on the ventilator. PT/OT ordered CM to follow. Plan: TBD Date Signed: 12/29/2018 11:02 AM Electronically Signed By:BOB Flores
[2018-12-29] MEDS: NOREPINEPHRINE BITARTRATE 4 MG in NS 500 ML IV SCH ×4 (11:22→18:54)
[2018-12-29] MEDS ORDERED: SODIUM BICARBONATE 150 MEQ in D5W 1,000 ML IV SCH (11:30)
[2018-12-29] MEDS: SODIUM BICARBONATE 150 MEQ in D5W 1,000 ML IV SCH ×2 (11:54→18:20)
[2018-12-29] MEDS ORDERED: NS 500 ML IV SCH (12:00)
[2018-12-29] MEDS ORDERED: NS 500 ML IV ONE (13:00)
--- NOTE | 2018-12-29 14:47 | GCON ---
[f rep st] CONSULTATION INFECTIOUS DISEASE CONSULTATION DATE OF CONSULTATION: 12/29/2018 REFERRING PHYSICIAN: Shirin Lange MD REASON FOR CONSULTATION: Encephalitis. HISTORY OF PRESENT ILLNESS: The patient is a 63-year-old female with a past medical history of hypertension who I am asked to see in consultation for encephalitis. History is obtained from the medical record and the patient's son as the patient is currently intubated and sedated. The patient was in her usual state of health on Friday until the late afternoon, at which point in time she developed nausea and vomiting. Earlier that day, she had been in her usual state of health. 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 Yesterday, she developed onset of confusion which son describes as being unable to speak and being confused with fixation on devices such as the remote control. She was noted to have a difficult time with general function and ambulation. She was brought into the emergency department based on her altered mental status yesterday. In her admission notes, it is noted that she also had a recent diagnosis of kidney stones. At the time of presentation, patient was noted to have a white count of 14,000 with left shift. She was also noted to have significant increase in her hematocrit with a hematocrit of 59.4 at time of presentation, which has subsequently been in the mid 60 range. There was no prior history of fever or chills. The patient had a lumbar puncture performed which showed no white blood cells, with 5 red blood cells, glucose 96, and protein greater than 600. Influenza testing by PCR was also performed and was positive for influenza A. The patient also had evidence of acute renal insufficiency. During her hospital stay, she had development of hypotension with a minimum systolic blood pressure recorded at 59. She subsequently has required 3 pressors for blood pressure support. She also developed respiratory failure requiring intubation. The patient's son does not note any recent travel. She has no animal exposures other than dogs at home. No known ill contacts. Patient has been receiving treatment empirically with vancomycin, Zosyn, and acyclovir. CSF Gram stain showed no organisms with culture pending. HSV PCR testing of spinal fluid is also pending. With blood pressure support, the patient has shown improvement in her blood pressure. Her hematocrit has remained elevated despite IV rehydration. The patient's son does not note any prior history of oral HSV. Given the above findings, I am now asked to assist in her ongoing management. PAST MEDICAL HISTORY: Hypertension, recent diagnosis of kidney stone. PAST SURGICAL HISTORY: Shoulder surgery. CURRENT MEDICATIONS: Vancomycin 1 g IV q.24 hours, Zosyn 3.375 g IV q.6 hours, Tamiflu 30 mg orally daily, acyclovir 720 mg IV q.8 hours, Lovenox 30 mg subcutaneously daily, epinephrine, vasopressin, and norepinephrine drips, sodium bicarbonate drip, propofol drip. ALLERGIES: Penicillin, with unclear reaction. SOCIAL HISTORY: No tobacco or alcohol use. No drug use. Pets: Dogs at home. No recent travel. FAMILY HISTORY: Noncontributory. REVIEW OF SYSTEMS: Outside that noted in the HPI, the remainder of a 10-system review is not able to be obtained. PHYSICAL EXAMINATION: VITAL SIGNS: Temperature maximum 37.7, heart rate 97, respiratory rate 33, blood pressure 71/52, oxygen saturation 97% on 60% FiO2. GENERAL: The patient is intubated and sedated. HEENT: There is no scleral icterus, conjunctival injection, or conjunctival petechiae. No nystagmus present. Endotracheal tube is in place. There is no nasal discharge. NECK: Limited range of motion present. No adenopathy or thyromegaly palpable. CHEST : Clear to auscultation bilaterally without adventitious sounds. The patient is mechanically ventilated. CARDIOVASCULAR: Tachycardic without murmurs, gallops, or rubs. ABDOMEN: Soft, nontender, nondistended. Bowel sounds are hypoactive. There is no palpable organomegaly. MUSCULOSKELETAL: No cyanosis, clubbing, or edema. Triple-lumen catheter and arterial lines are present in the femoral regions. SKIN: There is mottling over the abdominal wall, flank, and extremities bilaterally. No stigmata of endocarditis. Skin is cool to palpation distally. NEUROLOGIC: Patient is unresponsive, but sedated. No clonus present. Muscle tone and bulk are normal. No nystagmus present. LYMPHATICS: No cervical or supraclavicular nodes present. LABORATORY DATA: White blood cell count 20.1, hematocrit 66.3, platelets 125. Neutrophils 84%. Serum creatinine is 2.4, bicarbonate 15. Lactic acid is 3.7. CPK 77. TSH 5.3, free T4 of 1.0, free T3 of 1.9. AST 34, ALT 19, alkaline phosphatase 38, bilirubin 0.7. Ammonia less than 9. ABG shows pH 7.18, pO2 of 255, pCO2 of 23. Urinalysis shows 3-5 red blood cells and 50-182 white blood cells. CSF as outlined in the history of present illness; influenza PCR is positive for influenza A. Urine drug screen is negative. Blood cultures x2 are pending. Urine culture is pending. CT of the head without contrast shows no acute intracranial abnormalities. Echocardiogram shows no significant valvular abnormalities. Chest x-ray shows mild peribronchial thickening. IMPRESSION: 1. Encephalitis: Clinical presentation compatible with encephalitis with markedly elevated cerebrospinal fluid protein. No significant pleocytosis present, however. Differential considerations would include both infectious and noninfectious etiologies. Given her positive influenza A PCR, encephalitis due to influenza A is of consideration, although an uncommon entity. Herpes simplex virus encephalitis remains in the differential diagnosis and her presentation would be compatible. Other forms of viral encephalitis would also be of consideration. Bacterial etiology seem unlikely given lack of pleocytosis. Autoimmune disease, malignancy, and toxic metabolic etiologies would also be of consideration. Parameningeal foci would also be of consideration given markedly elevated protein. 2. Elevated hematocrit: The patient has markedly elevated hematocrit, which has not improved with IV hydration. Considerations, include possibility of polycythemia vera versus hemoconcentration with severe dehydration. The elevation and lack of response to hydration is somewhat profound for hemoconcentration. 3. Septic shock: Patient with clinical findings consistent with septic shock. Unclear if this is due to underlying etiology associated with encephalitis versus superimposed secondary process, particularly in the setting of influenza A. This would place patient at risk for bacteremia due to organisms such as Staphylococcus aureus or Streptococcus pneumoniae. In the setting of recent kidney stone diagnosis, a urinary etiology would also be of consideration. 4. Lactic acidosis: Related to above findings. 5. Thrombocytopenia. 6. Influenza A: See above discussion. RECOMMENDATIONS: 1. Agree with empiric vancomycin dosed cautiously with underlying renal insufficiency. Will obtain random level later today. I do not anticipate prolonged use of vancomycin unless MRSA isolated. 2. Ceftriaxone 2 g IV q.12 hours to cover for broad spectrum of typical bacterial pathogens, including urinary pathogens. 3. Continue acyclovir with adjustment to q.12 hour dosing based on renal insufficiency. 4. We will send CSF meningoencephalitis panel to [facility]. 5. Agree with plans for CT scan of abdomen and pelvis to ensure no evidence of intraabdominal pathology, particularly in light of kidney stone diagnosis and potential for ischemic bowel with hypotension and possible sludging created by elevated hematocrit. 6. Agree with plans for MRI of brain to further characterize encephalitis and assess for any specific abnormality, such as temporal lobe enhancement. 7. Follow up blood cultures as available. 8. We will discontinue Zosyn with use of ceftriaxone as outlined above, trying to limit nephrotoxicity which would be significant with vancomycin, Zosyn, and acyclovir. 9. Continue Tamiflu 30 mg orally daily which is dose adjusted for renal insufficiency (noting FIELD SALES REPRESENTATIVE penetration limited). Thank you for this consultation. We will continue to follow the patient with you. /[id number]/MODL MTDD
[2018-12-29] MEDS: OSELTAMIVIR 6 MG/ML UDSYR TUBE SCH (14:55)
[2018-12-29] MEDS: HYDROCORTISONE 100 MG/2 ML VIAL IVP SCH ×2 (14:56→21:42)
--- NOTE | 2018-12-29 14:57 | GPN ---
[f rep st] PROCEDURE NOTE PROCEDURE: Arterial line. CONSENT: Consent was waived due to the emergent nature of the procedure. INDICATION: Hypotension. TECHNIQUE: Using sterile Seldinger method, the right femoral artery was easily cannulated on the fir st attempt without difficulty, and the arterial catheter was easily advanced over a wire, and there w ere no obvious complications. /[id number]/MODL
--- NOTE | 2018-12-29 15:13 | GCON ---
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 She did not feel ve ry well but managed to be fine. Friday morning she was somewhat lethargic and confused and when her son returned home from work later on the same day, she was markedly confused. He had to convince her to leave the house and almost had to carry her to his car to get her into the hospital. At that twila e, she was quite confused and started on some IV fluids. The fluid seemed to help her confusion some what and she was admitted to the floor. She had a white count of 14,000 at the time and nasal swab w as positive for influenza. However, shortly after arrival on the floor she dropped her blood pressur e substantially and her mental status became worse. She was then transferred into the ICU where she was thought to be having difficulty protecting her airway, so that she underwent intubation. Her blo od pressure got substantially worse after that and continued to fall. A central line was placed. Th ere was difficulty measuring her blood pressure as many people tried a manual pressure as well as aut omated, neither one gave consistent results. An arterial line placed on my arrival and dictated sepa rately revealed much accurate data. In any case, she had not been noticeably around any sick people and before Friday had no prior complaints without any recent travel or exposures that we were aware o f . REVIEW OF SYSTEMS: As best we could obtain from her son and was negative. PAST MEDICAL HISTORY: Hypertension and remote renal stone. PAST SURGICAL HISTORY: None. SOCIAL HISTORY: She is a nonsmoker. No significant alcohol or IV drug use. FAMILY HISTORY: Noncontributory. CURRENT MEDICATIONS: Include acyclovir, ceftriaxone, Lovenox, epinephrine, norepinephrine, Pepcid, h ydrocortisone, Zofran, Tamiflu, propofol, bicarb drip, vasopressin. PHYSICAL EXAM: VITAL SIGNS: She came in with a temperature of 35.4, currently 37.6, blood pressure was 158/87, heart rate 96, down from 120 earlier today, respirations 32, oxygen saturation was 100% o n 60% FiO2. At the time of my exam she was obtunded on a ventilator and unable to give any historica l details. HEENT: Pupils equally round and reactive to light, noninjected, nonicteric. Mucous memb ranes as best I could tell were dry without thrush. NECK: Supple, without obvious adenopathy or jug ular vein distention. LUNGS: Breath sounds were clear to auscultation bilaterally without wheezes, rubs, rales. HEART: Regular rate and rhythm without obvious murmur. ABDOMEN: Mildly firm but most ly soft, nondistended without obvious hepatosplenomegaly. EXTREMITIES: No clubbing, cyanosis, or ed solitario. SKIN: Cool to touch peripherally mostly, but no rash. There was some mottling later on in the day as her blood pressure was somewhat labile. OBJECTIVE DATA: Her white count when she arrived was 14, it is up to 17. Her hematocrit was 66, molly telets of 159. Blood, urine and CSF cultures were negative. Her CSF revealed greater than 600 mg/dL of protein but only 3 white cells, 13 red cells, glucose of 96 and slight xanthochromia. Troponin w as 0.025, second one was 0.071. Influenza A was positive. Toxicology screen was negative. CK 77. UA showed 50 white cells, but leuk esterase and nitrates were negative. Lactate was 3.3, got as high as 4.7, is now coming down. ASSESSMENT PLAN: 1. Mental status change. This could have been related to blood pressure or possibly a viral encepha litis. Uncertain what the actual trigger is here. In any case, Neurology has been consulted. An MR Rafael is pending at this time, as well as EEG. We should minimize her sedation as much as possible. Cer tainly, propofol would be reasonable. Pain will be difficult to assess in this patient, but I would as soon avoid narcotics to better assess her mental status. Fentanyl was discontinued as well as p.r .n. Ativan. 2. Hypotension. Presumably this is related to sepsis, but may be some profound hypovolemia given he r very elevated hematocrit. Acute coronary syndrome seems very unlikely, though an echocardiogram is pending. Adrenal insufficiency is also highly unlikely, so we are treating her per sepsis protocol with multiple pressors, which was as high as 20 mics of Levophed plus vasopressin, plus 0.1 of epinep hrine. We started hydrocortisone. The epinephrine is now off. We are titrating off on her Levophed . We will continue to follow her serial lactates as well as follow up on the echocardiogram. Infect ious Disease has seen her and has tapered her antibiotics to include vancomycin and ceftriaxone with acyclovir, renally dosed. 3. Acute hypoxic respiratory failure. This is more about airway protection. There is no evidence o f pneumonia. We titrated down her FiO2. We have her rate relatively high to try to compensate for m etabolic acidosis. 4. Erythrocytosis. There is no evidence to support chronic hypoxemia in this patient. I suspect it is all related to profound dehydration. While it is tempting to phlebotomize this, we will continue to follow this closely and watch her labs. She is getting more fluids as she has been NICOM positiv e and I suspect this will normalize. 5. Acute kidney injury. I suspect her creatinine 2.1 is related to hypotension and is probably an a cute tubular necrosis. We will watch this for now and see that it does improve but no renal consult just yet. Total critical care time on the day was 120 minutes at the bedside, separate from procedures. /[id number]/MODL
--- NOTE | 2018-12-29 15:44 | HOSPPROG ---
Hospitalist Progress Note Assessment/Plan: * Encephalitis -infectious vs. other -MRI brain and EEG pending * Septic shock -3 pressors, weaned off epi -empiric IV hydrocortisone -empiric IV ceftriaxone per ID * Influenza A -Tamiflu * Acute respiratory failure -on vent * Polycythemia -suspect profound dehydration * Acute renal failure -due to sepsis - follow CC time - 40 minutes Subjective: Events noted, remains critically ill, 3 pressors at one time, epi now off and on Levophed + Vasopressin, bicarb gtt Objective: Vital Signs Temp Pulse Resp BP Pulse Ox 37.5 C 109 H 31 H 103/76 86 L 12/29/18 15:00 12/29/18 15:00 12/29/18 15:00 12/29/18 15:00 12/29/18 14:00 Microbiology 12/28/18 19:35 Gram Stain - Final Cerebral Spinal Fluid Laboratory Results 12/29/18 08:10 12/29/18 04:40 12/28/18 12/29/18 12/30/18 05:59 05:59 05:59 Intake Total 3050 Output Total 160 125 Balance 2890 -125 PT 14.3 SEC (12.0-15.0) 12/28/18 16:45 INR 1.16 (0.83-1.16) 12/28/18 16:45 CXR viewed, my personal interpretation is - relatively negative - Physical Exam Constitutional: other (intubated and sedated) Eyes: PERRL (very dilated but responsive) Cardiovascular: regular rate and rhythym, no murmur, rub, or gallop Respiratory: no respiratory distress, no rales or rhonchi, clear to auscultation Gastrointestinal: normoactive bowel sounds, soft, non-tender abdomen, no palpable masses Skin: no rashes or abrasions, no fluctuance, no induration Neurologic: No AAOx3 Psychiatric: encephalopathic, No interacting appropriately, No agitated ICD10 Worksheet Patient Problems: Problems Problem Status Onset Altered mental status Acute Dehydration Acute Polycythemia Acute Renal insufficiency Acute Urinary tract infection Acute Shortness of breath Acute
[2018-12-29] MEDS: EPINEPHRINE IV SCH (19:44)
[2018-12-29] MEDS: NS IV SCH ×2 (19:44→21:38)
[2018-12-29] MEDS: NOREPINEPHRINE BITARTRATE IV SCH (21:38)
[2018-12-30] MEDS: NS IV SCH ×5 (00:34→12:01)
[2018-12-30] MEDS: EPINEPHRINE IV SCH ×3 (00:34→12:01)
[2018-12-30] MEDS: SODIUM BICARBONATE 150 MEQ in D5W 1,000 ML IV SCH ×4 (01:03→21:32)
[2018-12-30] MEDS: NOREPINEPHRINE BITARTRATE IV SCH ×2 (01:47→06:29)
[2018-12-30 04:14] LABS: PLATELET COUNT 52 10^3/uL (150-400)
[2018-12-30] MEDS: VANCOMYCIN HCL/NORMAL SALINE 250 ML IV SCH (04:29)
[2018-12-30 05:11] LABS: HIV TYPE 1 AND 2 NEGATIVE (NEGATIVE)
[2018-12-30] MEDS ORDERED: PROTOCOL CALCIUM 1 DOSE IV PRN (05:25)
[2018-12-30] MEDS ORDERED: PROTOCOL POTASSIUM 1 DOSE MISC PRN (05:25)
[2018-12-30] MEDS ORDERED: PROTOCOL MAGNESIUM 1 DOSE IV PRN (05:25)
[2018-12-30] MEDS: POTASSIUM Cl (KCl) 50 ML IV SCH ×2 (05:32→09:09)
[2018-12-30] MEDS: VASOPRESSIN 25 UNIT in NS 250 ML IV SCH ×2 (06:29→15:45)
[2018-12-30] MEDS: HYDROCORTISONE 100 MG/2 ML VIAL IVP SCH ×3 (06:30→22:26)
[2018-12-30] MEDS ORDERED: CALCIUM GLUCONATE 2 GM in NS 50 ML IV ONE (07:21)
[2018-12-30] MEDS ORDERED: MAGNESIUM SULF 2 GM/WATER 50 ML IV ONE (07:21)
[2018-12-30] MEDS: D5W IV SCH ×2 (07:42→21:29)
[2018-12-30] MEDS: ACYCLOVIR IV SCH ×2 (07:42→21:29)
--- NOTE | 2018-12-30 08:26 | CPEKG ---
Test Reason : OPEN Blood Pressure : / mmHG Vent. Rate : 114 BPM Atrial Rate : 115 BPM P-R Int : 120 ms QRS Dur : 081 ms QT Int : 316 ms P-R-T Axes : 070 083 -25 degrees QTc Int : 436 ms Sinus tachycardia Borderline right axis deviation Consider left ventricular hypertrophy Nonspecific T abnormalities, inferior leads Confirmed by Nikki Landeros ([id number]) on 12/30/2018 8:25:42 AM Referred By: PHYSICIAN ED Confirmed By:Nikki Landeros
--- NOTE | 2018-12-30 08:26 | CPEKG ---
Test Reason : OPEN Blood Pressure : / mmHG Vent. Rate : 089 BPM Atrial Rate : 090 BPM P-R Int : 135 ms QRS Dur : 090 ms QT Int : 410 ms P-R-T Axes : 072 088 -81 degrees QTc Int : 499 ms Sinus rhythm Borderline right axis deviation Nonspecific repol abnormality, diffuse leads Confirmed by Nikki Landeros ([id number]) on 12/30/2018 8:25:42 AM Referred By: Nikki Landeros Confirmed By:Nikki Landeros
[2018-12-30] MEDS: CHLORHEXIDINE GLUCONATE 15 ML UDL PO SCH ×2 (08:56→21:35)
[2018-12-30] MEDS: OSELTAMIVIR 6 MG/ML UDSYR TUBE SCH ×2 (09:44→21:34)
[2018-12-30] MEDS: NOREPINEPHRINE BITARTRATE 16 MG in NS 250 ML IV SCH ×2 (10:45→21:15)
[2018-12-30] MEDS ORDERED: D50W 25 GM/50 ML SYR IVP PRN (10:49)
[2018-12-30] MEDS: FAMOTIDINE 20 MG/NACL 50 ML IV SCH (11:02)
--- NOTE | 2018-12-30 11:16 | HOSPPROG ---
Hospitalist Progress Note Assessment/Plan: * Encephalitis, persistent -non on any sedation -infectious vs. other. Possibly due to Influenza A -EEG pending -holding on MRI -ID following: abx, antiviral * Septic shock -3 pressors: Levophed, Vasopressin, Epinephrine -decreasing Levophed today for concern for tongue vasoconstriction -making some urine -cont IV Hydrocortisone. Dr. Anderson increasing steroids -cont abx per ID * Influenza A -Tamiflu * Acute respiratory failure -on vent per pulm * Polycythemia -suspect profound dehydration * Acute renal failure -due to sepsis - follow * Thrombocytopenia due to critical illness * Hyperglycemia: start ISS * Tongue wound, likely from vasoconstriction from Levophed, Wound care Pressors: Levophed, Vasopressin, Epi Fluids: Sodium Bicarb Endo: Hydrocortisone, ISS Resp: Vent ID: Vancomycin, Rocephin, Acyclovir DVT Proph: Lovenox Consultants: Pulm, ID, Wound CC time - 35 minutes Subjective: hypotensive and tachy. still on 3 pressors. Objective: Vital Signs Temp Pulse Resp BP Pulse Ox 36.9 C 107 H 26 H 94/58 L 100 12/30/18 09:58 12/30/18 09:58 12/30/18 09:58 12/30/18 09:58 12/30/18 09:00 Microbiology 12/28/18 19:35 Gram Stain - Final Cerebral Spinal Fluid Laboratory Results 12/30/18 03:45 12/30/18 05:30 12/29/18 12/30/18 12/31/18 05:59 05:59 05:59 Intake Total 3050 36714 900 Output Total 160 860 70 Balance 2890 82279 830 PT 14.3 SEC (12.0-15.0) 12/28/18 16:45 INR 1.16 (0.83-1.16) 12/28/18 16:45 - Physical Exam Constitutional: no apparent distress Ears, Nose, Mouth, Throat: moist mucous membranes Cardiovascular: regular rate and rhythym, No edema Respiratory: reduced air movement Gastrointestinal: normoactive bowel sounds, soft, non-tender abdomen Skin: warm Neurologic: No AAOx3 Psychiatric: encephalopathic Lymph, Heme, Immunologic: No petechiae ICD10 Worksheet Patient Problems: Problems Problem Status Onset Altered mental status Acute Dehydration Acute Influenza with encephalopathy Acute Polycythemia Acute Renal insufficiency Acute Urinary tract infection Acute Shortness of breath Acute
[2018-12-30] MEDS: ENOXAPARIN 30 MG/0.3 ML SYR SC SCH (12:09)
[2018-12-30] MEDS: INSULIN REGULAR, HUMAN 100 UNIT/1 ML VIAL STANDARD SC SCH ×2 (12:11→18:46)
--- NOTE | 2018-12-30 12:54 | NEUROPROG ---
Assessment: Total unit time of 25 min. The patient has evidence of worsening neurologic status with decreasing corneal reflexes but still retains breathing over the ventilator. This was suggest probable diffuse hemispheric and brainstem injury which could be on a infectious, ischemic basis and there may be progressive edema. The prognosis is very poor at this point. We will do a follow-up head CT in the morning because she is not stable enough for MRI. If there is diffuse cerebral edema, it would be reasonable to consider withdrawal of care. Subjective: The patient is currently unresponsive without any specific new issues documented from nursing staff for the medical team other than ongoing need for volume and pressor support. There have been no significant clinical changes other than apparent worsening of some aspects of her neurologic examination in terms of pupillary reactivity. She is not demonstrating any voluntary, purposeful movements. Objective: Vital Signs Temp Pulse Resp BP Pulse Ox 36.8 C 103 H 24 H 101/61 94 12/30/18 12:00 12/30/18 12:00 12/30/18 12:00 12/30/18 12:00 12/30/18 11:48 Microbiology 12/28/18 19:35 Gram Stain - Final Cerebral Spinal Fluid Laboratory Results 12/30/18 03:45 12/30/18 11:45 12/29/18 12/30/18 12/31/18 05:59 05:59 05:59 Intake Total 3050 79112 900 Output Total 160 860 90 Balance 2890 29269 810 PT 14.3 SEC (12.0-15.0) 12/28/18 16:45 INR 1.16 (0.83-1.16) 12/28/18 16:45 She is currently unresponsive to all forms of stimulation including suctioning but does breathe over the ventilator. Pupils are 4 mm on the right and 5 mm on the left without evident reactivity. Oculocephalic reflexes are lost and no corneal reflexes are present. There is no facial grimace to painful stimuli. The motor responses absent to painful stimuli. The laboratory studies negative for HSV 1 HSV 2 and no specific organisms have been identified. No seizure activity has been seen through EEG. Allergies/Adverse Reactions: penicillin G Allergy (Verified 12/28/18 18:52) Unknown
--- NOTE | 2018-12-30 12:56 | PDINTPN ---
Internal Control Specialist Progress Note Assessment/Plan: 63 F admitted 12/28 with obtundation, N/V and LP showing no wbc but very high protein and normal glucose. She was initially stable from a BP perspective and her MS improved with only IVF, but her BP dropped later and she was transferred from the floor to ICU. She was given pressors and additional IVF and intubated for airway protection, but her hemodynamics continued to plummet and obtaining vitals were difficult until an arterial line was placed. Her workup also included a negative head CT, CXR and unremarkable abdo/pelvis CT without contrast. An echo showed no PH and a normal EF. An EEG showed only diffuse slowing and an MRI is still pending. Blood, urine, and CSF cultures remain negative, but her nasal swab showed influenza A. * Hypotension from presumed septic shock complicated by likely profound hypovolemia given her severely elevated Hct (which was normal 08/2018) and repeatedly positive NICOM with clinical benefit following IVF. She is 12 liters net positive today and remains on levophed (30), vasopressin (0.04), and epi ( 0.2) in addition to hydrocortisone (50/6) and a HCO3 drip. We may consider albumin boluses if her pressor requirements dont improve. Her tongue tip is showing signs of ischemia and her upper LE's are clearly mottled but she does not tolerate lower epi. Will increase hydrocortisone to 100 and try to titrate the levophed today. Calcium has been replaced and she remains on a HCO3 drip with significant improvement in pH. No evidence of ACS though troponin repeat is pending. Plan to continue antibiotics with ID guidance for now, including acyclovir (DC since CSF HSV negative?), ceftriaxone, and Tamiflu. * acute respiratory failure with hypoxia- CXR looks OK without evidence of PNA. Advance ETT about 2 cm. RR high to assist in compensation of metabolic acidosis. * Encephalopathy- her pupils are dilated and sluggish and she has minimal responsiveness without sedation. An MRI presents particular technical challenges so will repeat head CT in AM after discussing with Dr. Romero. Guarded prognosis * PEPITO likely related to hypotension mediated ATN. Her uop is suboptimal at about 20 ml/hr, but her creatinine is falling. Continue to observe. * Tongue tip ischemia likely related to high pressor requirement, though finger tips appear normal. Wound care to see and observe closely. * critical care time 90 minutes 04/10/19 12:56 Subjective: critically ill but stable overnight Objective: Vital Signs Temp Pulse Resp BP Pulse Ox 36.8 C 103 H 24 H 101/61 94 12/30/18 12:00 12/30/18 12:00 12/30/18 12:00 12/30/18 12:00 12/30/18 11:48 Microbiology 12/28/18 19:35 Gram Stain - Final Cerebral Spinal Fluid Laboratory Results 12/30/18 03:45 12/30/18 11:45 12/29/18 12/30/18 12/31/18 05:59 05:59 05:59 Intake Total 3050 94259 900 Output Total 160 860 90 Balance 2890 84242 810 PT 14.3 SEC (12.0-15.0) 12/28/18 16:45 INR 1.16 (0.83-1.16) 12/28/18 16:45 Physical Exam - Physical Exam General Appearance: moderate distress, obtunded EENT: PERRL/EOMI, ET tube, other (1x2 cm area of black discoloration at tongue tip) Neck: supple, No lymphadenopathy (R), No lymphadenopathy (L) Respiratory: lungs clear, normal breath sounds, No accessory muscle use, No crackles, No rales, No rhonchi, No wheezing Cardiac/Chest: regular rate, rhythm, edema, tachycardia Abdomen: non-tender, soft, No distended, No hepatomegaly, No splenomegaly Skin: warm/dry, cyanosis (tongue as above), mottled (bilateral thighs), No normal color, No rash, No signs of IVDA, No decubitus Lymphatic: no adenopathy Extremities: pedal edema (mild) Neuro/Psych: motor weakness, sensory deficit, cognition abnormalities, other (4- 5 mm pupils, sluggish. No corneal per neuro) ICD10 Worksheet Patient Problems: Problems Problem Status Onset Altered mental status Acute Dehydration Acute Influenza with encephalopathy Acute Polycythemia Acute Renal insufficiency Acute Urinary tract infection Acute Shortness of breath Acute
[2018-12-30] MEDS ORDERED: ALBUMIN 25% 100 ML IV ONE (13:12)
[2018-12-30] MEDS ORDERED: ALBUMIN 25% 100 ML SOLN IV ONE (13:33)
[2018-12-30] MEDS: ALBUMIN 25% 100 ML IV SCH ×2 (13:40→18:15)
--- NOTE | 2018-12-30 13:49 | PCMIDPN ---
Assessment/Plan: Assessment/Plan: * Septic shock/encephalitis: No defined etiology to date. CSF meningoencephalitis panel including HSV PCR is negative. Negative HSV PCR does not fully rule out HSV encephalitis as this can be at times negative and not always associated with CSF pleocytosis/red blood cells. Patient has been too unstable for MRI of brain which would be helpful to assess for any evidence of temporal lobe involvement. Will continue acyclovir given severity of illness with hopes MRI may be obtainable if stabilizes. Possible that entire constellation of findings related to overwhelming influenza A. Blood and urine cultures have remain no growth as have CSF cultures. Will continue empiric vancomycin and ceftriaxone pending additional culture data. Continue Tamiflu and droplet precautions. Tamiflu dose increased based on improvement in renal function. * Increased hematocrit: Improved with rehydration with potential etiology hemoconcentration; no evidence of splenomegaly on CT scan as would be typical for polycythemia. * Increased ferritin: Ferritin greater than 10,000 which may be related to severe illness/acute phase reactants. However, raises other considerations such as hematologic disorder/HLH; will have Hematology evaluate given this finding, increased hematocrit and thrombocytopenia. * Thrombocytopenia: Likely related to septic shock with other considerations as outlined above. * Acute renal failure: Creatinine improved today with some urine output continuing. * Influenza A: See above discussion. Time spent, greater than 35 min, of which greater than half was spent in education/counseling/coordination of care. Participated in ICU rounds today with review of clinical findings and plan with Dr. Anderson and Dr. Hartman. Overall prognosis remains grave given severity of illness. 12/30/18 13:42 12/30/18 13:52 12/30/18 13:52 Subjective: Patient continues to require 3 pressors for blood pressure support. No responsiveness without sedation. Reviewed herbal supplement use with family noting this was a probiotic. Objective: Vital Signs Temp Pulse Resp BP Pulse Ox 36.8 C 107 H 26 H 105/64 94 12/30/18 13:00 12/30/18 13:00 12/30/18 13:00 12/30/18 13:00 12/30/18 11:48 Microbiology 12/28/18 19:35 Gram Stain - Final Cerebral Spinal Fluid Laboratory Results 12/30/18 03:45 12/29/18 12/30/18 12/31/18 05:59 05:59 05:59 Intake Total 3050 02271 900 Output Total 160 860 90 Balance 2890 28203 810 Blood cultures x2 no growth CSF culture no growth CSF meningoencephalitis panel no organisms including negative HSV PCR Urine culture no growth CT abdomen pelvis with some mucosal edema of ascending colon which is nonspecific Chest x-ray with probable left-sided pleural effusion and right-sided atelectasis - Physical Exam General Appearance: other (Unresponsive on ventilator) EENT: ET Tube, other (Bilateral conjunctival suffusion present), No scleral icterus, No conjunctival petechiae Respiratory: lungs clear, other (Mechanically ventilated) Cardiac/Chest: tachycardia Extremities: No inflammation Abdomen: non-tender, No distended Skin: rash (Diffuse mottling over trunk, abdomen and upper thighs with sparing of distal extremities) Neuro/Psych: other (Unresponsive) ICD10 Worksheet Patient Problems: Problems Problem Status Onset Altered mental status Acute Dehydration Acute Influenza with encephalopathy Acute Polycythemia Acute Renal insufficiency Acute Urinary tract infection Acute Shortness of breath Acute
--- NOTE | 2018-12-30 14:56 | PDCONSULT ---
Dental Laboratory Technician Apprentice Note: I was asked by Dr. Anderson to consult on Mrs. Quintero who is critically ill in the ICU. She was admitted 2 days ago with stupor, hypotension and +Influenza PCR. She received 14 l of IV fluid and is on 3 pressors at maximum dose. Today she was noted be progressively more mottled in her lower extremities and as the day has progress the mottling has ascended to her torso. A CT scan was performed that showed ascites (small amount) and diffuse bowel edema/retroperitoneal edema. There were multiple low density lesions in the liver of uncertain significance. Exam: BP 110/80 P 120 edematous woman on mechanical vent/unresponsive trachea midline, ETT Abd: distended/tight, absent bowel sounds no scars or hernias skin mottling up to the umbilicus ext: no pedal pulses palpable Lab and imaging reviewed on PACS Imp: hypotension/bowel and mesenteric edema worrisome for secondary compartment syndrome Rec: check abdominal pressures/ if compartment pressure greater than 15-20would recommend decompressive laparotomy Abdominal compartment syndrome confirmed by transducing intravesicle pressure of 20. I called her son Vamsi to let him know that I have recommended surgery. He is on his way to the hospital now surgery has been emergently scheduled as soon as consent is obtained Kaur García MD, FACS
--- NOTE | 2018-12-30 15:15 | GCON ---
[f rep st] CONSULTATION HEMATOLOGY ONCOLOGY CONSULTATION REFERRING PHYSICIAN: Wally Huang MD REASON FOR CONSULTATION: Abnormal blood counts. HPI: The patient is a 63-year-old woman who has been quite healthy in general, who presented to the emergency room 12/28/2018 with altered mental status of fairly abrupt onset. The day prior to admission, she went to work and was in her normal state of good health. The next day, she became confused, which progressed during the day, such to the point that her son brought her to the emergency room. In the ER, she had a positive flu swab, negative head CT without contrast, and LP demonstrated total protein greater than 600, glucose 96 , 0 white cells, negative HSV PCR. She was admitted to the floor but shortly thereafter required intubation due to worsened mental status and inadequate airway protection. She has had neurology and ID consultation. On admission, hemoglobin 19.8, hematocrit 59.4, WBC 14, platelets 199,000. Most recent prior hemoglobin (09/18/2018) was 13.6. Her hemoglobin reached a maximum of 21.8, hematocrit 66.3, and are down to 16.7/49.3 today following significant fluid resuscitation. Her platelet count has dropped to 52,000 today. Overall, she has worsened with increasing pressor requirement. She has received empiric stress steroids and is on broad-spectrum antibiotics (acyclovir, ceftriaxone, vancomycin, oseltamivir). Cultures have been negative with the exception of the influenza A swab. PAST MEDICAL HISTORY: Nephrolithiasis. PAST SURGICAL HISTORY: Shoulder surgery. FAMILY HISTORY: Noncontributory. 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 She lives with her son and . REVIEW OF SYSTEMS: Unable to obtain. PHYSICAL EXAM: VITAL SIGNS: She has been afebrile throughout admission. Current temperature 36.8, blood pressure 105/64, pulse 107, FiO2 70%. GENERAL: Intubated and unresponsive. Anasarca. HEENT: Tip of the tongue is necrotic. CARDIOVASCULAR: Tachycardic rate and rhythm, diffuse edema. LUNGS: Mechanical breath sounds bilaterally. ABDOMEN: Obese, soft. No masses. SKIN: No digital ischemia but the skin is mottled diffusely. No petechiae, ecchymoses. LYMPH: No lymphadenopathy. NEUROLOGIC: Unresponsive. LABORATORY STUDIES: Today, WBC 17.3 (73% segs, 5% bands, 11% lymphocytes, 10% monocytes, 1% eosinophils), hemoglobin 16.7, hematocrit 49.3, platelets 52,000. Sodium 137, potassium 3.2, chloride 119, bicarbonate 13, BUN 42, creatinine 1.7, glucose 184. LFTs remarkable for AST 55. Normal bilirubin, ALT, alkaline phosphatase. Ferritin greater than 10,000. (12/28/2018) normal coags. Venous lactate 4.6, ABG lactate 4.7. UA on admission: WBCs 50-182. Negative leukocyte esterase, nitrite. Negative tox screen. HIV negative. Microbiology cultures negative today, other than positive flu swab. RADIOLOGIC STUDIES: 1. Noncontrast head CT on admission negative. MRI could not be done due to patient motion. 2. (12/29/2018) CT abdomen/pelvis demonstrated no splenomegaly, hepatomegaly, adenopathy. Diffuse bowel wall thickening of the ascending colon and cecum present. 3. Chest x-ray today: Retrocardiac consolidation and possible developing right medial basilar airspace disease. IMPRESSION: 1. Thrombocytopenia: Likely multifactorial (sepsis, antibiotics, possible disseminated intravascular coagulation, consumption). 2. Erythrocytosis: She had an impressive erythrocytosis on presentation, greater than that expected for hemoconcentration from dehydration. This has corrected for the most part following significant hydration. The normal hemoglobin in August makes polycythemia vera unlikely, as this typically is a slowly progressive process. 3. Encephalopathy: This could potentially be due to influenza encephalopathy, although that is very uncommon. 4. Hypotension: Requiring multiple pressors. A unifying diagnosis is difficult to find. The overall picture does not seem consistent with influenza A (profound hypotension, encephalopathy). The ferritin is certainly in the range where HLH is a consideration, although she does not have other findings which would be suggestive (hepatosplenomegaly, adenopathy, at least 2 cytopenias, liver function abnormalities). She has no history of thromboembolic events and no obvious evidence of such this admission. Antiphospholipid syndrome can present with multiorgan dysfunction, but I think that is very unlikely.. Her skin findings are likely due to hypotension and pressors rather than vasculitis. She has no digital or peripheral ischemia, other than the tip of the tongue, to suggest vasculitis. I have ordered some additional studies, although I think it is very unlikely that there is an underlying hematologic condition which ties the above together. Dr. García is consulting regarding the abdominal CT findings. Discussed the case with Dr. Anderson, Dr. Huang, and Dr. García. /[id number]/MODL MTDD
--- NOTE | 2018-12-30 15:40 | PDANEPAE ---
ANE History of Present Illness abdominal compartment syndrome, sepsis here for ex lap ANE Past Medical History - Cardiovascular History Hx Hypertension: Yes Hx Arrhythmias: No Hx Chest Pain: No Hx Coronary Artery / Peripheral Vascular Disease: No Hx CHF / Valvular Disease: No - Pulmonary History Hx Oxygen in Use at Home: No Hx Sleep Apnea: No - Endocrine History Hx Diabetes: No - Chronic Pain History Chronic Pain: Yes ANE Review of Systems Review of Systems: - Exercise capacity Exercise capacity: >=4 METS ANE Patient History - Allergies Allergies/Adverse Reactions: penicillin G Allergy (Verified 12/28/18 18:52) Unknown - Home Medications Home medications: home medication list seen and reviewed Home Medications: Herbals/Supplements -Info Only 1 ea PO DAILY 12/28/18 [Last Taken Unknown] Ibuprofen [Motrin (*)] 200 - 400 mg PO DAILY PRN 12/28/18 [Last Taken Unknown] Irbesartan [Avapro 150 mg (*)] 150 mg PO DAILY 12/28/18 [Last Taken Unknown] oxyCODONE/APAP 5/325 [Percocet 5/325 (*)] 1 tab PO Q6HRS PRN 12/28/18 [Last Taken Unknown] - NPO status NPO Status: no food or drink >8 hours - Anes Hx Anes Hx: no prior problems - Smoking Hx Smoking Status: Never smoked - Alcohol Use Alcohol Use: Sober ANE Labs/Vital Signs - Labs Result Diagrams: 12/30/18 03:45 12/30/18 13:25 - Vital Signs Blood Pressure: 109/64 Heart Rate: 96 Respiratory Rate: 25 O2 Sat (%): 94 Height: 172.72 cm Weight: 88.3 kg ANE Physical Exam - Airway Mouth exam: ETT in situ - Pulmonary Pulmonary: no respiratory distress - Cardiovascular Cardiovascular: regular rate and rhythym - ASA Status ASA Status: III, E ANE Anesthesia Plan Anesthesia Plan: general endotracheal anesthesia
[2018-12-30 16:20] LABS: INR 1.81 (0.83-1.16); PROTIME(PATIENT) 20.1 SEC (12.0-15.0)
[2018-12-30 16:47] LABS: PLATELET COUNT 37 10^3/uL (150-400)
--- NOTE | 2018-12-30 16:48 | POSTOPPROG ---
Post Op Note Date of Operation: 12/30/18 Surgeon: Bernard García (, FACS) Senior Specialist: Keena Machado RN-FA Anesthesiologist: Jose Cruz Sullivna MD Anesthesia: GET(General Endotracheal) Pre-op Diagnosis: abdominal compartment syndrome Post-op Diagnosis: same Procedure: decompressive laparotomy Findings: 1200 ml ascites, bowel edema with patch areas of ischemia Inf/Abcess present in the surg proc area at time of surgery?: No EBL: Minimal Bowel Protocol: N/A Clean Closure Performed: N/A Drains: Wound Vac Specimen(s): culture peritoneal fluid
[2018-12-30] MEDS: BUPIVACAINE 0.25% 30 ML SDV ONE ×2 (16:55→16:59)
[2018-12-30] MEDS ORDERED: POTASSIUM Cl (KCl) 50 ML IV ONE (17:04)
--- NOTE | 2018-12-30 17:41 | GOP ---
[f rep st] OPERATIVE REPORT DATE OF OPERATION: 12/30/2018 SURGEON: Bernard García MD DIETARY SERVICE AIDE: Keena Machado [employer] DEVELOPER. ANESTHESIA: General endotracheal. ANESTHESIOLOGIST: Jose Cruz Sullivan MD. PREOPERATIVE DIAGNOSIS: Abdominal compartment syndrome. POSTOPERATIVE DIAGNOSIS: Abdominal compartment syndrome. PROCEDURE PERFORMED: Decompressive laparotomy and placement of ABThera wound vacuum-assisted closure device. FINDINGS: Approximately 1200 cc of ascites in the peritoneal cavity without odor. This fluid was cl ear. Specimen was submitted for aerobes and anaerobes, as well as Gram stain. There was diffuse isc hemia of the bowel, but without any areas of necrosis. The abdominal compartment was clinically unde r pressure upon entering the peritoneal cavity. INDICATIONS: The patient is a 63-year-old female, critically ill and hypotensive with influenza and findings of meningitis. The patient was hypotensive for the past 36 hours, requiring massive fluid r esuscitation and pressors. Despite this, the patient was at the limit of her pressor medications, an d a CT scan of the abdomen was performed, which showed diffuse bowel wall edema. Findings were worri some for compartment syndrome, and a bladder pressure were obtained and measured 20 mmHg. She was br ought to the operating room for decompressive laparotomy. DESCRIPTION OF PROCEDURE: After informed consent was obtained from the patient's family, she was bro ught emergently to the operating room, intubated from the intensive care unit. She was placed on the operating room table. All pressure points were padded, and warming devices were placed. She was mi ldly hypothermic with a temperature of 36. The abdomen was prepped and draped in the usual fashion. Prophylactic antibiotics were not administered. The patient was receiving ceftriaxone and vancomyci n on a scheduled dose. The abdomen was entered through a midline incision. The subcutaneous tissues and subcutaneous fat ap peared ischemic with dark congested venous blood from superficial veins. The fascia was incised in t he midline, and immediately the peritoneum and abdominal contents came into view under pressure. The peritoneum was incised, and the ascites was evacuated. The bowel, though edematous, appeared viable throughout and was run from the ligament of Treitz to the ileocecal valve. In the terminal ileum, t here were a few areas of patchy ischemia that were likely viable and were left in place. The large b owel appeared viable. There was no retroperitoneal hematoma. The patient's peritoneal organs were i ntact. There was no free blood in the peritoneal cavity. The patient's liver, stomach, and spleen w ere unremarkable. Having decompressed the abdomen and obtained cultures, the ABThera was brought ont o the field, cut to an appropriate shape, and placed into the pericolic gutters on each side, over th e liver cephalad, and down into the pelvis caudad. This was neatly fitted into the incision and then covered with a football-shaped piece of blue foam sponge that fit the wound nicely. Occlusive dress ings were placed over the ABThera device, and a small hole was cut in the center for suction tubing. This was applied and then reinforced with a second piece of transparent drape. Continuous wound VAC to 125 mmHg was applied, and the wound VAC suctioned down the foam without leaks. The patient was s ubsequently transported to the intensive care unit in satisfactory condition, but remaining criticall y ill on multiple pressors. Copy requested to: Justin /[id number]/MODL
--- NOTE | 2018-12-30 17:48 | NEUROPROG ---
Assessment: Total unit time of 25 min. The patient has evidence of worsening neurologic status with decreasing corneal reflexes but still retains breathing over the ventilator. This was suggest probable diffuse hemispheric and brainstem injury which could be on a infectious, ischemic basis and there may be progressive edema. The prognosis is very poor at this point. We will do a follow-up head CT in the morning because she is not stable enough for MRI. If there is diffuse cerebral edema, it would be reasonable to consider withdrawal of care. 12/30/18: Addendum @1984: The patient had a head CT today showing bilateral thalamic infarcts and right cerebellar peduncle ischemia well as thalamic ischemia and likely indicative of either venous or arterial thrombosis in the setting of sepsis syndrome. This would explain the progressive loss of brainstem reflexes and further challenges at hemodynamic stability. She also has abdominal compartment syndrome with a decompression a few hours ago and some evidence of bowel ischemia also supporting a hypotension syndrome. She is not a candidate for an interventional procedure or IV anticoagulation at this point in the degree of neurologic deficit is probably irreversible. I explained this to her son and will follow up with a morning. I told him that it may be appropriate to withdraw care at that point given this degree of deficit and objective ischemia in the basal ganglia and posterior fossa and likely more ischemia in the brainstem which cannot be visualized adequately on head CT alone. Objective: Vital Signs Temp Pulse Resp BP Pulse Ox 36.3 C 100 18 112/67 94 12/30/18 17:21 12/30/18 17:43 12/30/18 17:43 12/30/18 17:43 12/30/18 15:40 Microbiology 12/30/18 16:15 Mycobacterial Smear (BERNARDO) - Final Abdomen - Eswab Mycobacterial Culture - Final 12/28/18 19:35 Gram Stain - Final Cerebral Spinal Fluid Laboratory Results 12/30/18 15:30 12/30/18 13:25 12/29/18 12/30/18 12/31/18 05:59 05:59 05:59 Intake Total 3050 31300 900 Output Total 160 860 130 Balance 2890 61748 770 PT 20.1 SEC (12.0-15.0) H 12/30/18 15:30 INR 1.81 (0.83-1.16) H 12/30/18 15:30 Allergies/Adverse Reactions: penicillin G Allergy (Verified 12/28/18 18:52) Unknown
[2018-12-30] MEDS ORDERED: BENZOCAINE 20%/MENTHOL (ORAJEL) GEL 11.9GM TUBE TP PRN (18:11)
--- NOTE | 2018-12-30 23:36 | CPEEG ---
[f rep st] ELECTROENCEPHALOGRAM DATE OF STUDY: 12/29/2018 HISTORY: The patient is a 63-year-old woman who is presenting with a subacute and rapid decline in m ental status to the point of needing intubation and has a septic syndrome with question of encephalit is or meningoencephalitis with positive influenza A but negative for HSV-1 and HSV-2. There has not been any clinical seizure activity noted. INDICATION: Evaluate for seizure and focal findings. DESCRIPTION OF THE RECORD: This is a generally technically adequate study obtained in the ICU with s ome artifacts but generally interpretable. There is a generalized suppression of the background with prominent frontal beta activity. There is no significant reactivity during this recording, and the pattern does not significantly change. There are no areas of focal slowing, and no normal patterns o f sleep or wakefulness are seen. No evidence of nonconvulsive seizures or other focality. INTERPRETATION: This is an abnormal EEG consistent with a diffuse encephalopathic process most likel y and could be seen with multiple entities that can include cerebral edema from causes that could be infectious or ischemic in nature as well as possible medication effects, but the patient is not on an y significant sedatives during the time of this recording making the findings even more concerning fo r poor prognosis. /[id number]/MODL
[2018-12-31] MEDS: ALBUMIN 25% 100 ML IV SCH ×3 (00:15→12:09)
[2018-12-31] MEDS: INSULIN REGULAR, HUMAN 100 UNIT/1 ML VIAL STANDARD SC SCH ×3 (00:19→12:10)
[2018-12-31] MEDS: POTASSIUM Cl (KCl) 50 ML IV SCH ×3 (02:12→03:00)
[2018-12-31] MEDS ORDERED: HYDROCORTISONE 100 MG/2 ML VIAL ONE (04:45)
[2018-12-31] MEDS: VASOPRESSIN 25 UNIT in NS 250 ML IV SCH ×2 (04:59→13:58)
[2018-12-31] MEDS: VANCOMYCIN HCL/NORMAL SALINE 250 ML IV SCH (04:59)
[2018-12-31 05:33] LABS: PLATELET COUNT 34 10^3/uL (150-400)
[2018-12-31] MEDS ORDERED: CALCIUM GLUCONATE 2 GM in NS 50 ML IV ONE (06:00)
[2018-12-31] MEDS: HYDROCORTISONE 100 MG/2 ML VIAL IVP SCH ×2 (06:31→15:06)
[2018-12-31] MEDS: ENOXAPARIN 30 MG/0.3 ML SYR SC SCH (06:40)
--- NOTE | 2018-12-31 08:08 | NEUROPROG ---
Assessment: Total unit time of 45 min. The patient has state of coma most likely due to brainstem and posterior fossa ischemic infarctions in the setting of sepsis syndrome with hypercoagulability. Specific organisms for encephalitis or meningitis thus far have been negative. She had abdominal compartment syndrome yesterday with decompression. Today's testing continues reveal near absence of all brain function with the exception of transient nystagmus in the right eye with cold caloric testing. I have told the family that I think this is an irreversible condition with no chance for recovery from a neurologic standpoint and they should decide today about withdrawal of care. It is possible she could meet formal brain criteria. We have not performed apnea testing. The patient's transient response of brief gasp or hiccups type motion is of uncertain cause. If the ventilator is turn to a lower rate and she takes respirations on her own, then she would by definition not meet the criteria for brain but still has no chance for meaningful recovery my opinion. All of this was expressed in the presence of her nurse and direct conversation with her and son. They state that she would not want to be kept alive with artificial means if there is no chance for recovery. She is not processing any of the tube feedings suggesting that the gastrointestinal system is shutting down as well. Please contact me with any questions or assistance as needed. Nursing service will be sure that donor [place] is continued to be informed of the status. Subjective: The patient has not had any improvement overnight. She remains unresponsive with the only exception the nurse notes of occasional a brief case picker or gasp type action. Objective: Vital Signs Temp Pulse Resp BP Pulse Ox 36.6 C 104 H 19 107/64 99 12/31/18 06:00 12/31/18 06:00 12/31/18 06:00 12/31/18 06:00 12/31/18 06:00 Microbiology 12/30/18 16:15 Gram Stain - Final Abdomen - Eswab 12/30/18 16:15 Mycobacterial Smear (BERNARDO) - Final Abdomen - Eswab Mycobacterial Culture - Final 12/28/18 19:35 Gram Stain - Final Cerebral Spinal Fluid Laboratory Results 12/31/18 04:35 12/31/18 04:35 12/30/18 12/31/18 01/01/19 05:59 05:59 05:59 Intake Total 57899 9234 Output Total 860 2405 Balance 63938 6829 PT 20.1 SEC (12.0-15.0) H 12/30/18 15:30 INR 1.81 (0.83-1.16) H 12/30/18 15:30 The patient was examined starting at 0740. She has pupils which are approximately 4 mm and unreactive. Corneal reflexes are absent. Oculocephalic reflexes are absent. On cold caloric testing performed at 0745 on the left and then 5 min later on the right, the only response was transient nystagmus of the right eye with infusion on the right side. During testing she twice had this very brief gasp or gag like action. Again, the nurse says she has rarely seen that but has seen it before. She is currently not breathing over the ventilator at 17. There is no response to voice or painful stimulation or sternal rub. No response in the extremities to painful stimulation. Reflexes are absent. As noted yesterday, there is evidence of posterior circulation ischemia based on the edema described in the CT report. Laboratory studies are as noted above and also showing elevation of INR and D-dimer is elevated. Allergies/Adverse Reactions: penicillin G Allergy (Verified 12/28/18 18:52) Unknown
--- NOTE | 2018-12-31 08:22 | SOAPPROG ---
SOAP Progress Note Assessment/Plan: Assessment: ACS s/p decompressive laparotomy clinically improved hemodynamically Profound [employer]CHNICIAN manifestation of illness discussed with Dr. Romero Plan: leave wound vac in place for now If hemodynamic support to continue beyond tomorrow I would recommend changing the vac in the OR 12/31/18 08:17 Subjective: unresponsive/intubated Objective: Vital Signs Temp Pulse Resp BP Pulse Ox 36.6 C 104 H 19 107/64 99 12/31/18 06:00 12/31/18 06:00 12/31/18 06:00 12/31/18 06:00 12/31/18 06:00 Microbiology 12/30/18 16:15 Gram Stain - Final Abdomen - Eswab 12/30/18 16:15 Mycobacterial Smear (BERNARDO) - Final Abdomen - Eswab Mycobacterial Culture - Final 12/28/18 19:35 Gram Stain - Final Cerebral Spinal Fluid Laboratory Results 12/31/18 04:35 12/31/18 04:35 12/30/18 12/31/18 01/01/19 05:59 05:59 05:59 Intake Total 28491 9234 Output Total 860 2405 Balance 77423 6829 PT 20.1 SEC (12.0-15.0) H 12/30/18 15:30 INR 1.81 (0.83-1.16) H 12/30/18 15:30 Physical Exam - Physical Exam General Appearance: unresponsive EENT: ET tube Respiratory: lungs clear Cardiac/Chest: regular rate, rhythm Abdomen: soft, distended, other (absent bowel sounds, wound vac intact) ICD10 Worksheet Patient Problems: Problems Problem Status Onset Abdominal compartment syndrome, nontraumatic Acute Altered mental status Acute Dehydration Acute Influenza with encephalopathy Acute Polycythemia Acute Renal insufficiency Acute Urinary tract infection Acute Shortness of breath Acute - ICD10 Problem Qualifiers (1) Abdominal compartment syndrome, nontraumatic
[2018-12-31] MEDS: ACYCLOVIR IV SCH ×2 (08:52→20:58)
[2018-12-31] MEDS: D5W IV SCH ×2 (08:52→20:58)
[2018-12-31] MEDS: OSELTAMIVIR 6 MG/ML UDSYR TUBE SCH ×2 (08:53→20:59)
[2018-12-31] MEDS: CHLORHEXIDINE GLUCONATE 15 ML UDL PO SCH ×2 (08:55→20:59)
[2018-12-31] MEDS: FAMOTIDINE 20 MG/NACL 50 ML IV SCH (08:55)
[2018-12-31] MEDS ORDERED: FUROSEMIDE 40 MG/4 ML VIAL IVP ONE (09:00)
--- NOTE | 2018-12-31 10:40 | HOSPPROG ---
Hospitalist Progress Note Assessment/Plan: This is a 63 yo female who was admitted with confusion and found to have Influenza A infection. She was intubated for acute respiratory failure. She remains intubated. She was septic. She has required multiple pressors. Her hospitalization was complicated by persistent Encephalopathy. A CT scan on 12/30 showed brainstem and posterior fossa ischemic infarcts. Neurology is following and their consultation reveals no reversibility and there is a recommendation for withdrawal of care. She has required multiple pressors and IV Hydration. ON 12/30 she was taken to the OR emergently for decompressive laparotomy for abdominal compartment syndrome. Her bowels were found to have diffuse bowel ischemia but no e/o necrosis. She started tube feeds on 12/30 and has not tolerated them well. She continues to be on multiple pressors and IV steroids but has persistent hypotension and decreased urine output. There is signs of vasoconstriction. She continues on Antivirals including Tamiflu and Acyclovir. She remains on antibiotics. The pt's and son are waiting for additional family members today and are considering WD of care. Dr. Anderson will discuss further with them today. * Encephalitis, persistent -non on any sedation -infectious possibly due to Influenza vs ischemic infarct vs other -holding on MRI -ID following: abx, antiviral * Septic shock -3 pressors: Levophed, Vasopressin, Epinephrine -evidence of tongue vasoconstriction -making some urine -cont IV Hydrocortisone. -cont abx per ID * Influenza A -Tamiflu * Acute respiratory failure -on vent per pulm * Polycythemia -suspect profound dehydration * Acute renal failure -due to sepsis - follow * Thrombocytopenia due to critical illness * Hyperglycemia: ISS * Tongue wound, likely from vasoconstriction from Levophed, Wound care Pressors: Levophed, Vasopressin, Epi Fluids: Sodium Bicarb Endo: Hydrocortisone, ISS Resp: Vent ID: Vancomycin, Rocephin, Acyclovir, Tamiflu DVT Proph: Lovenox Consultants: Pulm, ID, Wound, Neurology, Hematology Subjective: pt's family considering withdrawing care Objective: Vital Signs Temp Pulse Resp BP Pulse Ox 36.4 C 106 H 19 63/44 L 83 L 12/31/18 09:48 12/31/18 09:48 12/31/18 09:48 12/31/18 09:48 12/31/18 09:00 Microbiology 12/30/18 16:15 Gram Stain - Final Abdomen - Eswab 12/30/18 16:15 Mycobacterial Smear (BERNARDO) - Final Abdomen - Eswab Mycobacterial Culture - Final 12/28/18 19:35 Gram Stain - Final Cerebral Spinal Fluid Laboratory Results 12/31/18 04:35 12/31/18 04:35 12/30/18 12/31/18 01/01/19 05:59 05:59 05:59 Intake Total 95498 9234 Output Total 860 2405 Balance 05794 6829 PT 20.1 SEC (12.0-15.0) H 12/30/18 15:30 INR 1.81 (0.83-1.16) H 12/30/18 15:30 - Physical Exam Constitutional: no apparent distress Ears, Nose, Mouth, Throat: moist mucous membranes Cardiovascular: regular rate and rhythym, edema Respiratory: no respiratory distress Gastrointestinal: normoactive bowel sounds Skin: warm Neurologic: No AAOx3 Psychiatric: encephalopathic Lymph, Heme, Immunologic: No petechiae ICD10 Worksheet Patient Problems: Problems Problem Status Onset Abdominal compartment syndrome, nontraumatic Acute Altered mental status Acute Dehydration Acute Influenza with encephalopathy Acute Polycythemia Acute Renal insufficiency Acute Urinary tract infection Acute Shortness of breath Acute
--- NOTE | 2018-12-31 12:26 | PCMIDPN ---
Assessment/Plan: Assessment: 63-year-old woman with severe acute neurologic changes without a definitive cause. Influenza certainly could cause an encephalitis and or a central nervous system demyelinating secondary effect that could affect basal ganglia structures and or brainstem. No no expectation for neurologic recovery at this point, would replace oseltamivir with peramivir if ongoing cares desired due to unreliable absorption of oral medications in patient with systemic edema. 1. Altered mentation/comatose; persistent 2. Acute influenza A infection with possible extra-pulmonary disease affecting the brain and autonomic nervous system 3. Acute kidney injury 4. Abdominal compartment syndrome s/p ex-lap Plan: 1. Stop vancomycin 2. Decrease ceftriaxone to 2gm daily 3. Peramivir to replace oseltamivir if ongoing cares Karl Yost MD Infectious Diseases 12/31/18 12:28 Subjective: Decreased vasopressor supports after exploratory laparotomy last evening. Microbiologic testing remains negative except positive influenza A PCR. Likely withdrawal of care due to poor prognosis for neurologic recovery. Objective: Vital Signs Temp Pulse Resp BP Pulse Ox 36.7 C 117 H 18 115/72 90 L 12/31/18 12:00 12/31/18 12:00 12/31/18 12:00 12/31/18 12:00 12/31/18 12:00 Microbiology 12/28/18 19:35 Gram Stain - Final Cerebral Spinal Fluid 12/30/18 16:15 Gram Stain - Final Abdomen - Eswab 12/30/18 16:15 Mycobacterial Smear (BERNARDO) - Final Abdomen - Eswab Mycobacterial Culture - Final Laboratory Results 12/31/18 04:35 12/31/18 04:35 12/30/18 12/31/18 01/01/19 05:59 05:59 05:59 Intake Total 77040 9234 Output Total 860 2405 350 Balance 55370 6829 -350 Microbiology 12/30/18 16:15 Abdomen - Eswab Mycobacterial Smear (BERNARDO) - Final 12/30/18 16:15 Abdomen - Eswab Mycobacterial Culture - Final 12/30/18 16:15 Abdomen - Eswab Gram Stain - Final 12/28/18 19:35 Cerebral Spinal Fluid Gram Stain - Final 12/28/18 17:15 Urine,Clean Catch Urine Culture - Final 12/28/18 19:35 Cerebral Spinal Fluid CSF Culture - Preliminary 12/28/18 17:05 Blood Blood Culture - Preliminary 12/28/18 17:00 Blood Blood Culture - Preliminary Laboratory Tests 12/28/18 12/28/18 12/30/18 17:15 20:05 03:45 WBC 17.36 H Hgb 16.7 H Hct 49.3 H Plt Count 52 L Absolute Neuts (auto) Absolute Monos (auto) Absolute Eos (auto) Creatinine ALT Alkaline Phosphatase Total Protein Albumin Urine WBC 50-182 H Nasal Influenza A PCR FLU A DETECTED H Nasal Influenza B PCR NEGATIVE FOR FLU B HIV 1&2 Antibody 12/30/18 12/31/18 12/31/18 03:45 04:35 04:35 WBC 13.30 H Hgb 13.5 Hct 39.5 Plt Count 34 L Absolute Neuts (auto) 11.30 H Absolute Monos (auto) 0.89 H Absolute Eos (auto) 0.01 L Creatinine 1.6 H ALT 56 H Alkaline Phosphatase 23 L Total Protein 2.9 L Albumin 1.7 L Urine WBC Nasal Influenza A PCR Nasal Influenza B PCR HIV 1&2 Antibody NEGATIVE - Physical Exam General Appearance: other (Comatose; No evident discomfort on ventilator) EENT: No scleral icterus Respiratory: other (Ventilator sounds without wheeze or rhonchi) Cardiac/Chest: No diastolic murmur, No systolic murmur Extremities: swelling, No erythema Abdomen: other (Wound vac in place, no erythema at edges, no induration or fluctuant areas; Hypo-active bowel sounds) Skin: other (Mottling of skin on the trunk, particularly the abdomen, extending the the bilateral groins and upper thighs; No mottling of hands/feet/toes/ fingers) Neuro/Psych: other (Non-resonsive to painful stimuli) - Time Spent With Patient Time Spent with Patient: greater than 35 minutes Time Spent with Patient: Greater than 35 minutes spent on this patients care, greater than 50% of time spent counseling, educating, and coordinating care regarding the above mentioned plan. ICD10 Worksheet Patient Problems: Problems Problem Status Onset Abdominal compartment syndrome, nontraumatic Acute Altered mental status Acute Dehydration Acute Influenza with encephalopathy Acute Polycythemia Acute Renal insufficiency Acute Urinary tract infection Acute Shortness of breath Acute
--- NOTE | 2018-12-31 13:56 | WOCRNPDOC ---
[facility] Advanced Assessment Note - Skin Integrity Problem, Advanced Assess Tongue Dressing Type: Open to Air Wound Bed Color: Black Site Measurement - Head-to-Toe Length X Width X Depth (cm): 1x4 Skin Integrity Problem Comment: Patient intubated with tongue tip protruding from mouth perhaps due to extensive generalized swelling. Appears black. Query due to vasopressors. The small amount of tongue not protruding that can be assessed appears to be healthy tissue, not necrotic. Generalized mouth is so swollen that medical devices cannot be repositioned off of tongue, query trach. BARRINGTON Moser and Lorna JARAMILLO in room for assessment. Wound care will sign off.
[2018-12-31] MEDS: SODIUM BICARBONATE 150 MEQ in D5W 1,000 ML IV SCH ×2 (13:57→20:59)
--- NOTE | 2018-12-31 15:52 | PDINTPN ---
Shirt Turner Progress Note Assessment/Plan: 63 F admitted 12/28 with obtundation, N/V and LP showing no wbc but very high protein and normal glucose. She was initially stable from a BP perspective and her MS improved with only IVF, but her BP dropped later and she was transferred from the floor to ICU. She was given pressors and additional IVF and intubated for airway protection, but her hemodynamics continued to plummet and obtaining vitals were difficult until an arterial line was placed. Her workup also included a negative head CT, CXR and unremarkable abdo/pelvis CT without contrast. An echo showed no PH and a normal EF. An EEG showed only diffuse slowing and an MRI is still pending. Blood, urine, and CSF cultures remain negative, but her nasal swab showed influenza A. * Hypotension from presumed septic shock complicated by likely profound hypovolemia given her severely elevated Hct (which was normal 08/2018) and repeatedly positive NICOM with clinical benefit following IVF. Her bladder pressure 10 was 20, suggesting a possible abdominal compartment syndrome requiring surgical decompression which she tolerated well. While there was incremental hemodynamic improvement, her neuro stats remains quite poor. 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 An MRI presents particular technical challenges so will repeat head CT in AM after discussing with Dr. Romero. Guarded prognosis * PEPITO likely related to hypotension mediated ATN. Her uop is suboptimal at about 20 ml/hr, but her creatinine is falling. Continue to observe. * Tongue tip ischemia likely related to high pressor requirement, though finger tips appear normal. Wound care to see and observe closely. * * Dispo: I had numerous and lengthy conversations with multiple providers ( neurology, surgery, ID, hematology, hospitalist, etc) concerning her poor prognosis with little to no chance of meaningful recovery. Her family wishes to examine her advanced directives, which should be at home, but are in agreement for DNR now and likely withdrawal of support later today or tomorrow. I advocated for autopsy Subjective: s/p abdominal decompression with minimal improvement in hemodynamics Objective: Vital Signs Temp Pulse Resp BP Pulse Ox 37.0 C 117 H 18 106/67 90 L 12/31/18 15:00 12/31/18 15:00 12/31/18 15:00 12/31/18 15:00 12/31/18 13:00 Microbiology 12/30/18 16:15 Gram Stain - Final Abdomen - Eswab 12/28/18 19:35 Gram Stain - Final Cerebral Spinal Fluid 12/30/18 16:15 Mycobacterial Smear (BERNARDO) - Final Abdomen - Eswab Mycobacterial Culture - Final Laboratory Results 12/31/18 04:35 12/31/18 04:35 12/30/18 12/31/18 01/01/19 05:59 05:59 05:59 Intake Total 11187 9234 Output Total 860 2405 350 Balance 54878 6829 -350 PT 20.1 SEC (12.0-15.0) H 12/30/18 15:30 INR 1.81 (0.83-1.16) H 12/30/18 15:30 Physical Exam - Physical Exam General Appearance: obtunded, unresponsive EENT: ET tube, other (ischemic tongue tip) Neck: supple Respiratory: lungs clear, decreased breath sounds, No respiratory distress, No accessory muscle use Cardiac/Chest: regular rate, rhythm, edema Abdomen: soft, other (wound vac), No distended Skin: cyanosis, mottled, No rash Lymphatic: no adenopathy Extremities: pedal edema Neuro/Psych: abnormal scholastic aptitude test grader II-XII, motor weakness, sensory deficit, cognition abnormalities ICD10 Worksheet Patient Problems: Problems Problem Status Onset Abdominal compartment syndrome, nontraumatic Acute Altered mental status Acute Dehydration Acute Influenza with encephalopathy Acute Polycythemia Acute Renal insufficiency Acute Urinary tract infection Acute Shortness of breath Acute
[2019-01-01] MEDS: NOREPINEPHRINE BITARTRATE 16 MG in NS 250 ML IV SCH (00:31)
[2019-01-01] MEDS: VASOPRESSIN 25 UNIT in NS 250 ML IV SCH (01:03)
[2019-01-01] MEDS: NS IV SCH (01:03)
[2019-01-01] MEDS: EPINEPHRINE IV SCH (01:03)
[2019-01-01 06:53] VITALS: BP 108/68
--- NOTE | 2019-01-01 08:03 | NEUROPROG ---
Assessment: Total unit time of 45 min. The patient has state of coma most likely due to brainstem and posterior fossa ischemic infarctions in the setting of sepsis syndrome with hypercoagulability. Specific organisms for encephalitis or meningitis thus far have been negative. She had abdominal compartment syndrome yesterday with decompression. Today's testing continues reveal near absence of all brain function with the exception of transient nystagmus in the right eye with cold caloric testing. I have told the family that I think this is an irreversible condition with no chance for recovery from a neurologic standpoint and they should decide today about withdrawal of care. It is possible she could meet formal brain criteria. We have not performed apnea testing. The patient's transient response of brief gasp or hiccups type motion is of uncertain cause. If the ventilator is turn to a lower rate and she takes respirations on her own, then she would by definition not meet the criteria for brain but still has no chance for meaningful recovery my opinion. All of this was expressed in the presence of her nurse and direct conversation with her and son. They state that she would not want to be kept alive with artificial means if there is no chance for recovery. She is not processing any of the tube feedings suggesting that the gastrointestinal system is shutting down as well. Please contact me with any questions or assistance as needed. Nursing service will be sure that donor [place] is continued to be informed of the status. 01/01/19: He total unit time 15 min today. I spoke with the patient's and son and they are planning on withdrawing supportive care and moving toward comfort measures around 9 this morning which remains appropriate. I provided my card to her son and I am available for questions as they may arise later. Subjective: The patient is status has not changed overnight. Objective: Vital Signs Temp Pulse Resp BP Pulse Ox 38.7 C H 136 H 20 108/68 56 L 01/01/19 04:00 01/01/19 06:00 01/01/19 06:00 01/01/19 06:00 01/01/19 00:00 Microbiology 12/30/18 16:15 Gram Stain - Final Abdomen - Eswab 12/28/18 19:35 Gram Stain - Final Cerebral Spinal Fluid Laboratory Results 12/31/18 04:35 12/31/18 04:35 12/31/18 01/01/19 01/02/19 05:59 05:59 05:59 Intake Total 9234 3805 Output Total 2405 2480 Balance 6829 1325 PT 20.1 SEC (12.0-15.0) H 12/30/18 15:30 INR 1.81 (0.83-1.16) H 12/30/18 15:30 The patient remains in coma with absence of brainstem reflexes, although I did not repeat cold caloric testing this morning. Yesterday when the ventilator was diminished, she was breathing over the set rate. She is currently be breathing at the rate of the ventilator which we did not decrease when I was there this morning. Allergies/Adverse Reactions: penicillin G Allergy (Verified 12/28/18 18:52) Unknown
--- NOTE | 2019-01-01 12:26 | PDDCSUM ---
Discharge Summary Discharge Summary: This is a 63 yo female who was admitted with confusion and found to have Influenza A infection. She was initially stable from a BP perspective and her MS improved with only IVF, but her BP dropped later and she was transferred from the floor to ICU. She was given pressors and additional IVF and intubated for airway protection, but her hemodynamics continued to plummet and obtaining vitals were difficult until an arterial line was placed. She required multiple pressors. Her workup also included a negative head CT, CXR and unremarkable abdo /pelvis CT without contrast. An echo showed no PH and a normal EF. An EEG showed only diffuse slowing. Blood, urine, and CSF cultures remain negative, but her nasal swab showed influenza A. Her hospitalization was complicated by persistent Encephalopathy. A CT scan on showed brainstem and posterior fossa ischemic infarcts. Neurology consultation revealed no reversibility and they recommended withdrawal of care. On 12/30 she was taken to the OR emergently for decompressive laparotomy for abdominal compartment syndrome. Her bowels were found to have diffuse bowel ischemia but no e/o necrosis. She started tube feeds on 12/30 and did not tolerated them well. She required multiple pressors and IV steroids but had persistent hypotension and decreased urine output. She was treated with Tamiflu and Acyclovir and antibacterials The pt's and son ultimately decided to withdraw care. She extubated this morning and subsequently comfortably DDx: * Encephalitis, persistent: Influenza certainly could cause an encephalitis and or a central nervous system demyelinating secondary effect that could affect basal ganglia structures and or brainstem * Brainstem and posterior fossa ischemic infarctions in the setting of sepsis syndrome with hypercoagulability. Specific organisms for encephalitis or meningitis thus far have been negative * Septic shock * Influenza A * Acute respiratory failure * Polycythemia * Acute renal failure * Thrombocytopenia due to critical illness * Hyperglycemia: ISS * Tongue wound, likely from vasoconstriction from Levophed, Wound care was provided total time spent on d/c is 35 mins
--- NOTE | 2019-01-01 15:15 | PDINTPN ---
Certified Physician Assistant Progress Note Assessment/Plan: 63 F admitted 12/28 with obtundation, N/V and LP showing no wbc but very high protein and normal glucose. She was initially stable from a BP perspective and her MS improved with only IVF, but her BP dropped later and she was transferred from the floor to ICU. She was given pressors and additional IVF and intubated for airway protection, but her hemodynamics continued to plummet and obtaining vitals were difficult until an arterial line was placed. Her workup also included a negative head CT, CXR and unremarkable abdo/pelvis CT without contrast. An echo showed no PH and a normal EF. An EEG showed only diffuse slowing and an MRI is still pending. Blood, urine, and CSF cultures remain negative, but her nasal swab showed influenza A. * Hypotension from presumed septic shock complicated by likely profound hypovolemia given her severely elevated Hct (which was normal 08/2018) and repeatedly positive NICOM with clinical benefit following IVF. Her bladder pressure 4/10 was 20, suggesting a possible abdominal compartment syndrome requiring surgical decompression which she tolerated well. While there was incremental hemodynamic improvement, her neuro stats remains quite poor. 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 An MRI presents particular technical challenges so will repeat head CT in AM after discussing with Dr. Romero. Guarded prognosis * PEPITO likely related to hypotension mediated ATN. Her uop is suboptimal at about 20 ml/hr, but her creatinine is falling. Continue to observe. * Tongue tip ischemia likely related to high pressor requirement, though finger tips appear normal. Wound care to see and observe closely. * * Dispo: after family discussion today support withdrawn with rapid demise. Family declined autopsy despite lengthy discussion. 01/01/19 15:13 Subjective: no events overnight Objective: Vital Signs Temp Pulse Resp BP Pulse Ox 38.7 C H 136 H 20 108/68 56 L 01/01/19 04:00 01/01/19 06:00 01/01/19 06:00 01/01/19 06:00 01/01/19 00:00 Microbiology 12/30/18 16:15 Gram Stain - Final Abdomen - Eswab 12/28/18 19:35 Gram Stain - Final Cerebral Spinal Fluid CSF Culture - Final Laboratory Results 12/31/18 04:35 12/31/18 04:35 12/31/18 01/01/19 01/02/19 05:59 05:59 05:59 Intake Total 9234 3805 Output Total 2405 2480 Balance 6829 1325 PT 20.1 SEC (12.0-15.0) H 12/30/18 15:30 INR 1.81 (0.83-1.16) H 12/30/18 15:30 Physical Exam - Physical Exam General Appearance: obtunded, obese EENT: ET tube Neck: supple Respiratory: lungs clear Cardiac/Chest: regular rate, rhythm, edema Abdomen: non-tender, soft, other (wound vac), No distended Skin: mottled, No cyanosis, No rash Lymphatic: no adenopathy Extremities: No pedal edema Neuro/Psych: cognition abnormalities ICD10 Worksheet Patient Problems: Problems Problem Status Onset Abdominal compartment syndrome, nontraumatic Acute Altered mental status Acute Dehydration Acute Influenza with encephalopathy Acute Polycythemia Acute Renal insufficiency Acute Shortness of breath Acute Urinary tract infection Acute
== END 2019-01-01 10:00 | disposition expired | DRG 853 ==
LOC: F2N 20:49
PROVIDERS: ADMIT Internal Medicine; ATTEND Internal Medicine
PROC: 5A1945Z Respiratory Ventilation, 24-96 Consecutive Hours (ICD-10-PCS; 2018-12-28)
PROC: 0BH18EZ Insertion of Endotracheal Airway into Trachea, Via Natural or Artificial Opening Endoscopic (ICD-10-PCS; 2018-12-28)
PROC: 009U3ZX Drainage of Spinal Canal, Percutaneous Approach, Diagnostic (ICD-10-PCS; 2018-12-28)
PROC: 06HM33Z Insertion of Infusion Device into Right Femoral Vein, Percutaneous Approach (ICD-10-PCS; 2018-12-29)
PROC: 04HK33Z Insertion of Infusion Device into Right Femoral Artery, Percutaneous Approach (ICD-10-PCS; 2018-12-29)
PROC: 2W13X6Z Compression of Abdominal Wall using Pressure Dressing (ICD-10-PCS; principal; 2018-12-30 15:30)
PROC: 0W9F0ZZ Drainage of Abdominal Wall, Open Approach (ICD-10-PCS; principal; 2018-12-30 15:30)
PROC: 0DJW0ZZ Inspection of Peritoneum, Open Approach (ICD-10-PCS; principal; 2018-12-30 15:30)
DX: A41.9 Sepsis, unspecified organism (principal); R65.21 Severe sepsis with septic shock; G04.90 Encephalitis and encephalomyelitis, unspecified; J96.01 Acute respiratory failure with hypoxia; J10.81 Influenza due to other identified influenza virus with encephalopathy; G93.40 Encephalopathy, unspecified; M79.A3 Nontraumatic compartment syndrome of abdomen; I63.89 Other cerebral infarction; K55.039 Acute (reversible) ischemia of large intestine, extent unspecified; D69.6 Thrombocytopenia, unspecified; R18.8 Other ascites; E87.2 Acidosis; D75.1 Secondary polycythemia; N17.9 Acute kidney failure, unspecified; I10 Essential (primary) hypertension; Z87.442 Personal history of urinary calculi
CPT/HCPCS: 80305; 82435-PO; 82565-PO; 82668-90; 82784-90; 82947-PO; 83605-ER; 84132-PO; 84295-PO; 84481-90; 84484-ER; 84520-PO; 85014-ER; 85210-90; 85220-90; 85230-90; 85240-90; 85250-90; 85260-90; 85270-90; 85280-90; 85379-90; 85384; 85635-90; 85670-90; 86147-90; 96365; G0480; J0133; J0171; J0610; J0696; J1650; J1720; J1815; J1940; J2270; J2543; J3010; J3370; J3475; J3480; P9047